=== PATIENT | female | born 1955 | race Caucasian/White ===

== ENCOUNTER 2024-01-07 17:12 | Inpatient (IN) | payer BC, SELFPAY ==
[2024-01-07] VITALS (10 sets, daily range): BP systolic 98–151; BP diastolic 72–94; BMI 22.5; BMI 21.9
[2024-01-07 10:40] LABS: Glucose - Point of Care 107 mg/dl (70-99)
--- NOTE | 2024-01-07 10:47 | ED.GENMED ---
History of Present Illness
General
Chief Complaint: Abdominal Symptoms
Source: patient
Time Seen by Provider: 01/07/24 10:19
History of Present Illness
History of Present Illness:
68yoF with no known medical problems (has not seen a PCP in many years) presenting for evaluation of abdominal bloating and distention. Patient states she is a very thin lady but she started to look like she was about 6-7 months ago. She
also reports associated bilateral leg swelling which has also been ongoing. Additionally, she is urinating very frequently without any associated dysuria. She denies any shortness of breath or orthopnea. She has not seen a doctor in many years but
she did see an OBGYN last week who ordered an outpatient abdominal ultrasound which is not scheduled until next month. She denies any tobacco use. She drinks on average 3 glasses of wine/week.
Phy Exam
General Physical Exam
General Presentation: well appearing and no apparent distress
General age: appears stated age
General Skin: warm and dry
General Habitus: normal
General Mental: alert
ENT Exam
ENT Exam: normocephalic
Cardiovascular Exam
Cardiovascular Exam: regular rate/rhythm, no murmur and other (2+ pitting edema in bilateral lower extremities)
Pulmonary Exam
Pulmonary Exam: lungs clear, no respiratory distress, no rales, no crackles, no rhonchi and no wheezing
Gastrointestinal Exam
Gastrointestinal Exam: non tender, soft and other (+Abdominal distention noted. Abdomen non-tender to palpation. )
Xavi Coma Scale
Eye Opening: Spontaneous
Verbal Response: Oriented
Motor Response: Obeys Commands
GCS Total Score: 15
Skin Exam
Skin Exam: normal color and warm/dry
Psychiatric Exam
Psychiatric Exam: normal mood/affect
Course
Orders/Labs/Results
Orders:
Orders
01/07/24 Breakfast
Regular
At Your Request: Full Participation
Does patient need a safe tray?: No
01/07/24 10:20
Bedside Glucose- Treatment ONCE
01/07/24 10:46
CR Chest - 2 Views Urgent
Comment:
Reason For Exam: Leg swelling
Venous Doppler Lwr Ext Bilat [US Periph Venous LOWER Ext Carter] Urgent
Comment:
Reason For Exam: Bilateral leg swelling
01/07/24 10:57
Complete Blood Count/With Diff Urgent
Comprehensive Metabolic Panel Urgent
Lipase Urgent
NT-proBNP Urgent
01/07/24 10:58
Urinalysis Reflex To Culture Urgent
Date Specimen was Collected: 01/07/24
Time Specimen was Collected: 10:57
01/07/24 11:06
CT Abd/pelvis W Iv Cont Urgent
Comment:
Reason For Exam: Abdominal distention
01/07/24 16:52
Admit/Transfer Patient As Directed
Co-Sign Provider:
Level of Care: Inpatient admission
Assign to:: Medical/Surgical
Physician / Group: Tone
Diagnosis: Abdominal Mass
Reason for Hospitalization: Abdominal Mass
Expected length of stay greater than two midnights?: Yes
ELOS- Estimated Length of Stay in days: 3
I certify the patient meets the requirements for IP care: Yes
PRN Pain Medication Management As Directed
May give lesser potent ordered pain med per pt: Yes
preference::
Protocol:: Medication orders for pain may be administered in a
manner that supports deferring to patient preference
when the pt is:
- Requesting an ordered lesser potent pain medication.
Least to most potent pain medications are defined
as: acetaminophen < NSAID < tramadol < opioids
(morphine, oxycodone, hydromorphone).
- Requesting a lesser dose of the same medication IF
ORDERED.
- Requesting a less intrusive route of administration
if both routes are prescribed by the provider (PO <
IV).
01/07/24 16:53
Code Status As Directed
Resuscitation Status: Full Code
01/07/24 17:35
HCG Male/Tumor Marker [S] Routine
01/07/24 17:45
Acetaminophen [Tylenol] 650 mg PO Q4HPRN PRN
Ondansetron Injectable [Zofran] 4 mg IV Q6HPRN PRN
01/07/24 17:45
Consult Surgery [SURGICAL CONSULT] Routine
Consulting Provider: Lorenzo Wagner
Was physician already notified: Yes
Reason for consult: Abd / Pelvic Mass
FACILITY SUPERVISOR Oncology Consult Routine
Consulting Provider: Terry Hickman
Was physician already notified: Yes
Reason for consult: Abd / Pelvic Mass
CA 125 Routine
LDH Routine
MR Abdomen W/o & W Contrast Routine
Comment: Abd and Pelvis
Reason For Exam: L retroperitoneal mass
Recent pill cam endoscopy?: No
Activity As Directed
Activity Level: Ambulate
Bladder Scan As Directed
Follow Bladder Retention/Intermittent Cath Algorithm?: Yes
PRN if no void in __ hours: 6
Frequency: Per Retention Algorithm
If Bladder Scan Result >: 400
then:: Straight cath
I/O [Intake/ Output] As Directed
Frequency: Per unit guidelines
Pneumatic Compression Sleeves As Directed
Type: Knee high
Straight Cath As Directed
Frequency: Per Retention Algorithm
Additional Instructions: straight cath as needed per acute urinary retention algorithm for 24 hrs
Additional Instructions: for bladder scan greater than 400 mL
Vital Signs As Directed
Frequency: Per unit guidelines
Weight As Directed
Frequency: Daily
Oxygen Therapy [O2 Therapy] [RESP] Routine
Titrate/Wean O2 to maintain O2 sat greater than (%): 94
DX Deep Vein Thrombosis Video Routine
01/08/24 06:00
Basic Metabolic Panel IN AM
Complete Blood Count/No Diff IN AM
LFT [Sugkc-Aohx-Lbzdazq] IN AM
Abnormal Lab Results
01/07/24 01/07/24 01/07/24
10:39 10:57 11:02
MPV 11.0 H fL
(7.4-10.4)
BUN 22 H mg/dl
(7-17)
Glucose 102 H mg/dl
(70-99)
POC Glucose 107 H mg/dl 105 H mg/dl
(70-99) (70-99)
01/07/24 10:57
01/07/24 10:57
Vital Signs
Initial and Last Documented VS:
Initial Vital Signs
Temp Pulse Resp BP
98.3 F 75 16 151/87
01/07/24 09:35 01/07/24 09:35 01/07/24 09:35 01/07/24 09:35
Last Documented Vital Signs
Temp Pulse Resp BP Pulse Ox
98.7 F 65 18 141/84 99
01/07/24 18:05 01/07/24 18:05 01/07/24 18:05 01/07/24 18:05 01/07/24 18:05
MDM/Problems Addressed
Differential Diagnosis Includes:
68yoF here with abdominal distention x 6-7 months with associated urinary frequency and bilateral leg swelling. Patient has not seen a PCP in many years. She is afebrile and hemodynamically stable. She is well-appearing in no acute distress.
Abdomen is significantly distended although nontender. There is also pitting edema to the lower extremities. Differential diagnosis includes but is not limited to: Malignancy, volume overload, CHF
Initial ED plan: Check abdominal labs, UA, bilateral venous duplex, CXR, and CT abdomen.
*Critical Care Note
Total Time (30-74mins, 75-104mins- exclusive of procedures): Not Applicable
Update Note
Update Note:
Labs unremarkable. UA bland without signs of infection. Venous duplex negative for DVT. No pulmonary edema on chest x-ray. CT abdomen unfortunately shows a large mass within the pelvis extending into the abdomen measuring 27cm x 23cm with
significant mass effect. Patient informed of results and I reviewed CT images with her. Case discussed with relief man/onc and she was admitted for further management.
ED Attending Note
-
Portions of this chart may have been created with voice recognition software.� Occasional wrong word or��sound alike� substitutions may have occurred due to the inherent limitations of voice recognition software.
Discharge Plan
Departure
Patient Disposition: Admit
Date of Disposition: 01/07/24
Time of Disposition: 15:19
Presentation/result/management discussed w/ accepting MD/DO: Hospitalist
Discharge Problem:
Mass of ovary
Interventions
Interventions:
*Risk Screen - Suicide Last Done: 01/07/24 09:35
*General Assessment Last Done: 01/07/24 09:35
*Neglect/Abuse Screening Last Done: 01/07/24 09:35
ED- Fall Risk Assessment Last Done: 01/07/24 11:03
*ED COVID-19 Vaccine History Last Done: 01/07/24 11:03
*Nursing Disposition Last Done: 01/07/24 17:45
QK-Yfrtvf-Vnmmotqspw Assessment Last Done: 01/07/24 11:03
Discharge Date and Time
Discharge Date/Time: 01/07/24 17:45
[2024-01-07 11:03] LABS: Glucose - Point of Care 105 mg/dl (70-99)
[2024-01-07 11:20] LABS: % Basophils 1.3 % (0-2); % Eosinophils 2.3 % (0-6); % Immature Granulocytes 0.2 % (0-0.5); % Lymphocytes 26.9 % (20.5-51.1); % Monocytes 6.7 % (1.7-9.3); % Neutrophils 62.6 % (42.2-75.2); Absolute Basophils 0.1 10^3/uL (0-0.2); Absolute Eosinophils 0.1 10^3/uL (0-0.7); Absolute Lymphocytes 1.6 10^3/uL (1.2-3.4); Absolute Monocytes 0.4 10^3/uL (0.1-0.6); Absolute Neutrophils 3.8 10^3/uL (1.4-6.5); Hematocrit 39.8 % (37.0-47.0); Hemoglobin 13.3 g/dL (12.0-16.0); Mean Corp Hgb Conc. 33.4 g/dL (33.0-37.0); Mean Corpuscular Hgb 30.2 pg (27.0-31.0); Mean Corpuscular Volume 90.5 fL (81.0-99.0); Nucleated Red Blood Cells % 0 %; Platelet Count 249 10^3/uL (130-400); Red Cell Dist. Width 14.4 % (11.5-14.5); White Blood Cell Count 6.1 10^3/uL (4.8-10.8)
[2024-01-07 11:31] LABS: ALT (SGPT) 22 U/L (0-35); AST (SGOT) 32 U/L (14-36); Albumin 4.6 g/dl (3.5-5.0); Alkaline Phosphatase 54 U/L (38-126); Blood Urea Nitrogen 22 mg/dl (7-17); Calcium 9.9 mg/dl (8.4-10.2); Carbon Dioxide 27 mmol/L (22-30); Chloride 104 mmol/L (98-107); Estimated Creatinine Clearance 52 ml/min; Glucose 102 mg/dl (70-99); Lipase 100 U/L (23-300); Potassium 4.4 mmol/L (3.5-5.1); Sodium 143 mmol/L (135-145); Total Bilirubin 0.4 mg/dl (0.2-1.3); Total Protein 7.1 g/dl (6.3-8.2); eGFR > 60.00
[2024-01-07 11:39] LABS: NT-proBNP 133 pg/ml
[2024-01-07 11:41] LABS: Urine Albumin Negative (Neg - Trace); Urine Bilirubin Negative (Negative); Urine Character Clear (Clear); Urine Color Yellow; Urine Glucose Negative (Negative); Urine Ketone Negative (Negative); Urine Leukocyte Negative (Negative); Urine Nitrite Negative (Negative); Urine Occult Blood Negative (Negative); Urine Urobilinogen Negative (Neg - 1+)
--- NOTE | 2024-01-07 16:37 | HPS.HSE ---
Family Physician
-
Family Physician: NOT KNOW UNKNOWN - PT DOES
Chief Complaint
-
Abdominal Distention
History of Present Illness
Patient is a 68y F with no significant PMH who presents to ED complaining of abdominal distention and ankle edema. Patient states that she initially noted a bloating sensation / increased abdominal girth in May / June of this year. This
has gradually increased since that time. Patient states that she is very active. She denies any associated symptoms including abdominal pain, N/V/D, fevers / chills, vaginal discharge or bleeding.
Patient also noted some ankle swelling since this past summer. This too has increased over time. She reports urinary frequency but no urgency / bleeding.
With progressive constellation of symptoms, patient presented to her ASSISTANT [employer]CH OPERATIONS MANAGER for evaluation this past week. Outpatient evaluation was ordered including abdominal imaging.
Patient states that her symptoms have significantly increased in the past week and she presented to the ED here for evaluation.
Medical History
Past Medical History
Past Medical History: Reports None
Past Surgical History: Reports Other
Additional Past Surgical History:
D&E x 2
Right Lumpectomy (benign)
Social History
Tobacco: Non-smoker
Alcohol: Occasional
Drug: None
Family History
Family History: Other (Father: Lung Cancer Mother: Longevity)
Allergies / Home Medications
Allergies reflects when Allergies were last updated in [employer].
Home Medications with original date entered in [facility]
Allergy/Medication List:
Allergies
Allergy/AdvReac Type Severity Reaction Status Date / Time
acetaminophen Allergy Intermediate Unknown Verified 01/07/24 09:34
[From Darvocet-N 100]
propoxyphene Allergy Intermediate Unknown Verified 01/07/24 09:34
[From Darvocet-N 100]
Sulfa (Sulfonamide Allergy Unknown Verified 01/07/24 09:34
Antibiotics)
Home Medications
acetaminophen 500 mg tablet (Tylenol Extra Strength) 1,000 mg PO Q6HPRN PRN mild pain 01/07/24
clindamycin phosphate 1 % topical gel 1 applic topical BIDPRN PRN skin issues 01/07/24
multivitamin with minerals (Hair,Skin and Nails tablet) 1 tab PO DAILY 01/07/24
naproxen sodium 220 mg tablet (Aleve) 220 mg PO BIDPRN PRN mild pain 01/07/24
phenylephrine 0.25 %-mineral oil 14 %-petrolatm 74.9 % rectal ointment (Preparation H) 1 applic MT AMHS PRN hemorrhoids 01/07/24
pyridoxine (vitamin B6) 100 mg tablet 100 mg PO DAILY 01/07/24
Review of Systems
-
History Source: Patient
A 12 point ROS was completed and negative except as noted: Yes
Constitutional: Denies Chills
EENT: Denies Sore Throat
Respiratory: Denies Cough or Trouble Breathing
Cardiac: Denies Chest Pain or Palpitations
Abdomen/GI: Reports Other (Abdominal distention); Denies Abdominal Pain, Nausea, Vomiting or Diarrhea
: Reports Frequency; Denies Dysuria or Flank Pain
Musculoskeletal: Reports Edema; Denies Joint Pain
Neurological: Denies Dizzy, Headache, Weakness or Numbness
Psych: Denies Depression or Anxiety
Physical Exam
Vital Signs
Vital Signs
Temp Pulse Resp BP Pulse Ox
98.3 F 71 16 125/77 97
01/07/24 09:35 01/07/24 11:03 01/07/24 09:35 01/07/24 14:00 01/07/24 14:30
Physical Exam
General: Other (68y F in no acute distress.)
HEENT: Moist mucous membranes and PERRLA
Respiratory: Clear; No Wheezes, Rales or Rhonchi
Cardiac: S1/S2 and Regular Rhythm; No Murmur
GI: Other (Abdomen is softly distended. Not tender. Pos BS. No rebound / guarding.)
Musculoskeletal: No Clubbing, No Cyanosis and Other (Trace pedal edema bilaterally.)
Neuro: AO x 3
Laboratory Results
-
01/07/24 10:57
01/07/24 10:57
Laboratory Results
Total Bilirubin 0.4 mg/dl (0.2-1.3) 01/07/24 10:57
AST 32 U/L (14-36) 01/07/24 10:57
ALT 22 U/L (0-35) 01/07/24 10:57
Alkaline Phosphatase 54 U/L (38-126) 01/07/24 10:57
Lipase 100 U/L (23-300) 01/07/24 10:57
Impression/Plan
-
A/P: Patient is a 68y F with no significant PMH who presents to ED complaining of abdominal distention and LE edema x weeks / months.
Left Abdominal / Pelvic Mass
- Admit for further evaluation and treatment.
- Large mass in the L abdomen / pelvis with a degree of mass effect on the L ureter, IVC, etc.
- Normal renal function, labs all unremarkable.
- Patient essentially asymptomatic with exception of abdominal distention (no pain) and ankle swelling.
- ASSISTANT [employer] OPERATIONS MANAGER-Onc consulted - mass on second look appears more c/w retroperitoneal origin than pelvic / ovarian origin.
- Surgery evaluation.
- Check MRI for further evaluation.
- Tumor markers, additional labs, etc.
- Follow for any new / worsening symptoms.
DVT Prophylaxis: SCDs
Code Status: Full
--- NOTE | 2024-01-07 17:14 | W.CON.GYNONC ---
Consultation
-
Date/Time Consultation Requested: 01/07/2024
Requesting Provider: louann Torres PA-C
Performing Provider: Terry Hickman
Chief Complaint
-
AbdominoPelvic Mass
History of Present Illness
68y WF menopausal for at least 10 years with no significant PMH who presents to ED complaining of abdominal distention and ankle edema. Patient states that she initially noted a bloating sensation / increased abdominal girth in May
/ June of this year. This has gradually increased since that time. her symptoms have significantly increased in the past week and she presented to the ED here for evaluation. she has not gained weight, occasionally has irrgeular bowels but that
is usual for her. Patient states that she is very active, practices yoga, is a cyclist She denies any associated symptoms including abdominal pain, N/V/D, fevers / chills, vaginal discharge or bleeding.
Patient also noted some intermittent ankle swelling since this past summer. She reports urinary frequency but no urgency / bleeding. she does not have PCP, could not find a primary care to see her. she was seen previously by Dr Shu David in
[facility] last vocational education teacher exam 2-3 yeasr ago, she did seek and see vocational education teacher this apst week with Dr Madden. she did not do a pap but ordered US of pelvis.
POB Hx: 2 , 2 D&E
PMH None
PSH: Mohs surgery (skin ca), D&E x 2, breast biopsy (benign)
FHx: father lung ca (smoker)
Meds: Vitamin B6, D
All: Darvocet, ? sulfa
SHX: denies tobacco use, drinks wine 3 times per week, denies drugs and marijuana
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
Mammogram 2 years ago
Medical History
Past Medical History
Past Medical History: Reports None
Past Surgical History: Reports Gynocological
Social History
Tobacco: Non-smoker
Alcohol: Occasional
Drug: None
Personal:
Living: Alone
Employment: Employed
Family History
Family History: Cancer (father Lung ca)
Allergies
Allergies reflect when allergies were last updated in [employer].
acetaminophen [From Darvocet-N 100] Allergy (Intermediate, Verified 01/07/24 09:34)
Unknown
propoxyphene [From Darvocet-N 100] Allergy (Intermediate, Verified 01/07/24 09:34)
Unknown
Sulfa (Sulfonamide Antibiotics) Allergy (Verified 01/07/24 09:34)
Unknown
Review of Systems
-
History Source: Patient
A 12 point Review of Systems was completed except as noted: Yes
EENT: Reports No Symptoms
Respiratory: Reports No Symptoms
Cardiac: Reports No Symptoms
Abdomen/GI: Reports See HPI
: Reports Frequency
Musculoskeletal: Reports See HPI (leg swelling)
Neurological: Reports No Symptoms
Endocrine: Reports No Symptoms
Hematologic/Lymphatic: Reports No Symptoms
Psych: Reports No Symptoms
Physical Exam
Vital Signs / I&O
Vitals
Temp Pulse Resp BP Pulse Ox
98.3 F 71 16 118/86 97
01/07/24 09:35 01/07/24 11:03 01/07/24 09:35 01/07/24 16:25 01/07/24 16:45
Physical Exam
General: Well Developed and No Apparent Distress
HEENT: Normocephalic
Respiratory: Clear and Non Labored Respirations
Cardiac: S1/S2 and Regular Rhythm
GI: Organomegaly
Genito-urinary: No Costovertebral Tend
Musculoskeletal: Edema
Skin: Warm
Neuro: Awake, Alert and Oriented
Hematologic/Lymphatic: No Lymphadenopathy
Psych: Anxious
Results
-
01/07/24 10:57
01/07/24 10:57
REPORT ADDENDUM~~
ADDENDUM
With superior displacement of the left kidney, this mass is more likely retroperitoneal rather than intraperitoneal. 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
Electronically signed by Guerrero Ocampo MD, 01/07/2024 4:49 PM
[employer] Dose Report: Up-to-date CT equipment and radiation dose reduction techniques were employed. CTDIvol: 6.9 mGy. DLP: 758 mGy-cm.
Addendum Dictated by: Guerrero Ocampo MD
Addendum Dictated Date & Time: 01/07/24 1642
Addendum Signed by: Terrence CALZADA,Guerrero Garza
Addendum Signed Date & Time: 01/07/24 1649
EXAMINATION: CT of the abdomen and pelvis with intravenous contrast
INDICATION: 68-year-old with abdominal distention. Bloating for the past couple of months. Bilateral leg swelling.
COMPARISON: No comparison examination is available.
FINDINGS: CT of the abdomen and pelvis with intravenous contrast and without oral contrast, per the emergency department CT protocol.
Mild dependent atelectasis in the posterior lower lungs. There is also a linear density within the anterior and inferior aspect of the left lower lobe, which is likely linear atelectasis although could also represent scarring.
There is no significant pleural effusion and no significant pericardial effusion.
There is a large mass filling much of the pelvis and extending into the abdomen to the T12 level. This mass has slightly greater extension into the left pelvis and abdomen when compared to the right. Also, results in deviation of the left ureter
into the right abdomen and pelvis, before crossing back to the left ureteral orifice within the pelvis. There is also mild to moderate left calyceal dilation from compression of the left ureter.
This mass has heterogeneous density including a significant fat component. 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 This mass measures 27.4 cm craniocaudal by 23.3 cm transverse by
approximately 12 cm AP.
The uterus is probably retroflexed extending in the presacral region. Also, heterogeneous enhancement of the posterior uterus, probably best seen on coronal images, suggesting that there is also likely a posterior exophytic fibroid or fibroids.
There is a small amount of free fluid within the posterior pelvis posterior to the uterus.
I believe that the right ovary is present in the right adnexal region and appears within normal limits, although somewhat difficult to confidently identified.
Of note, by imaging alone, it would be difficult to exclude torsion of this large left ovarian mass, and clinical correlation is advised.
There is significant mass effect upon bowel loops, as well as upon the pancreas and the left ovary, with significant superior extension of the left ovary.
No focal abnormality of the gallbladder by CT. Mild intrahepatic bile duct prominence. The common bile duct measures up to 8.4 mm, which is considered dilated in this 68-year-old patient, and possibly as a result of extrinsic mass effect upon the
pancreas.
Tiny 2 mm cysts present within the lateral and superior aspect of the right lower liver. No other focal hepatic lesions. The main portal vein and its branches appear patent as well as the SMV and the splenic vein. Hepatic veins are patent.
The spleen appears normal.
Both adrenal glands appear within normal limits.
There is no aortic aneurysm. No significantly enlarged abdominal or pelvic lymph nodes are identified.
Despite compression of bowel loops, there is no convincing evidence for bowel obstruction.
This mass does contribute to compression of the inferior IVC as well as the common iliac veins, and could certainly be the cause for lower extremity swelling. No gross evidence for venous thrombus on the basis of this CT examination.
There is mild subcutaneous edema within the visualized proximal thighs.
Mild dextroconvex scoliosis centered in the upper lumbar spine. Changes of degenerative disc disease, greatest at L2-3. No significant degenerative change of the hip joints. Mild degenerative changes symphysis pubis.
IMPRESSION: There is a large mass within the pelvis and extending into the abdomen. This has heterogeneous density with significant component of fat density. 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
associated mass effect.
Of note, torsion of this mass cannot be excluded by imaging findings, and clinical correlation is advised.
Small amount of free pelvic fluid in the posterior pelvic cul-de-sac.
See above narrative.
Electronically signed by Guerrero Ocampo MD, 01/07/2024 2:18 PM
Data Reviewed
-
Diagnostic Radiology: Image personally visualized and interpreted and Discussed with Physician (spoke with radiologist Dr Hoang and Hospitalist Dr Wayne )
CT Scan: Image personally visualized and interpreted and Discussed with Physician
Lab Data: Labs Reviewed
Impression / Plan
-
This patient has a very large this is a 68-year-old woman with a large 27 x 23 cm mass presenting to the emergency room for abdominal swelling and lower extremity edema. I have personally reviewed the images and feel that the mass is probably
retroperitoneal as it is causing elevation of left kidney, displacement of the ureter from left to right side as well as mass effect on the pancreas. All of these are retroperitoneal structures, the mass exhibits fat density, altogether this is
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
My recommendations are as follows
1Admit patient to hospitalist service for medical evaluation, for preoperative clearance, needs EKG possibly echocardiogram
2Consults surgical oncology for surgical resection
3Consult urology, their services will be likely necessary for cystoscopy stent placement and assistance in surgery
4MRI of the abdomen and pelvis with and without contrast will be helpful for better delineation of the exact location of tumor and soft tissue interaction with adjacent organs.
5CT thorax with contrast, PE protocol to exclude possibly pulmonary embolism and also see whether there is any metastatic disease.
6I do feel that pelvic ultrasound probably should be done as well and I recommend tumor markers including CA125, CEA, CA 19�9 as well as germ cell markers including LDH, AFP, hCG.
7Patient has some concern about returning back to appointment on Tuesday as well as observation of her upcoming yarsani holiday.
[2024-01-07 22:43] LABS: LDH 200 U/L (120-246)
[2024-01-07 23:09] LABS: TSH Reflex To Free T4 2.57 uIU/ml (0.47-4.68)
[2024-01-08 06:00] VITALS: BMI 21.6
[2024-01-08 07:00] VITALS: BP 143/96
[2024-01-08] MEDS: TYLENOL 650 MG PO ×2 (08:01→17:07)
--- NOTE | 2024-01-08 08:22 | W.PN.UPDATE ---
Update Note
Progress Note Update
Seen and examined. No new complaints. No acute overnight events.
Worsening abd distention [id number] with ankle swelling
ct ap showed large mass 27cm, rp mass with mass effect as rp organs have been displaced
no pain, states she wished she had pain because if she did she would have been in the ER sooner.
ROS negative apart from what is stated above
NAD, resting comfortably in bed
Scleral anicteric
Moist mucous membranes
No JVD
CTA bilateral
Normal S1-S2 no murmurs
Doughy like superficially, but on deep palpation hard, Nontender round distended bowel sounds active
Trace pedal edema
Moves extremities spontaneously
AAOx3
Pelvic mass unclear. Ovarian versus retroperitoneal per INTERNAL CONTROL SPECIALIST oncology
-Surgical oncology consult, will need bx
-Urology consult for potential cystoscopy with stent placement
-MRI with abdomen pelvis without contrast
-CT thorax with contrast
-Tumor markers
- -CEA
- -CA 19-9
- -CA125
- -Tumor marker hCG
- -LDH
- -AFP
Hydroxizine ordered for anxiety.
Will check a EKG
At this time RCRI 0. Rodriguez score 0.0% deejay risk
Acceptable risk for surgery if treating surgeon and anesthesia want to proceed with surgery
[2024-01-08 12:41] LABS: Hematocrit 37.3 % (37.0-47.0); Hemoglobin 12.8 g/dL (12.0-16.0); Mean Corp Hgb Conc. 34.3 g/dL (33.0-37.0); Mean Corpuscular Hgb 30.4 pg (27.0-31.0); Mean Corpuscular Volume 88.6 fL (81.0-99.0); Mean Platelet Volume 10.4 fL (7.4-10.4); Platelet Count 233 10^3/uL (130-400); Red Blood Cell Count 4.21 10^6/uL (4.20-5.40); Red Cell Dist. Width 14.6 % (11.5-14.5); White Blood Cell Count 5.5 10^3/uL (4.8-10.8)
[2024-01-08 13:29] LABS: ALT (SGPT) 20 U/L (0-35); AST (SGOT) 26 U/L (14-36); Albumin 4.3 g/dl (3.5-5.0); Alkaline Phosphatase 42 U/L (38-126); Blood Urea Nitrogen 15 mg/dl (7-17); Calcium 9.7 mg/dl (8.4-10.2); Carbon Dioxide 26 mmol/L (22-30); Chloride 105 mmol/L (98-107); Direct Bilirubin 0.1 mg/dl (0.0-0.4); Estimated Creatinine Clearance 60 ml/min; Glucose 112 mg/dl (70-99); Potassium 4.4 mmol/L (3.5-5.1); Sodium 141 mmol/L (135-145); Total Bilirubin 0.5 mg/dl (0.2-1.3); Total Protein 6.5 g/dl (6.3-8.2); eGFR > 60.00
--- NOTE | 2024-01-08 13:36 | CON.GS ---
Consultation
-
Date/Time Consultation Requested: 01/07/2024, 17:45
Date/Time Consultation Performed: 01/08/2024, 09:45
Requesting Provider: Mikael Wayne DO
Performing Provider: Lorenzo Wagner MD
Reason for Consultation: retroperitoneal mass
Medical History
-
Chief Complaint: leg swelling, abdominal distention
History of Present Illness:
68 yo female with a past medical history of anxiety presents with lower extremity swelling and abdominal distention. The patient states her leg swelling started in September 2023 and would wax and wane. She states her abdominal distention started around
May 2023 and has continued to worsen. She states her bowel movements have been regular for her. She denies rectal bleeding. She notes she had had increased urination. She denies nausea or vomiting. She has never had a colonoscopy. There is no
family history of rectal or colon cancer.
Upon arrival to the ER, her wbc and vitals are normal. CT A/P shows a large abdominal mass extending into the pelvis. The mass is more likely retroperitoneal rather than intraperitoneal. 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 We have been consulted for further surgical opinion.
Past Medical History
Past Medical History: Psychiatric (anxiety)
Past Surgical History: Other (D&E x 2, Right Lumpectomy )
Social History
Tobacco: Non-Smoker
Drug: None
Employment: Employed
Family History
Family History: Reviewed & Not Pertinent
Allergies / Home Medications
Allergy/AdvReac Type Severity Reaction Status Date / Time
acetaminophen Allergy Intermediate Unknown Verified 01/07/24 09:34
[From Darvocet-N 100]
propoxyphene Allergy Intermediate Unknown Verified 01/07/24 09:34
[From Darvocet-N 100]
Sulfa (Sulfonamide Allergy Unknown Verified 01/07/24 09:34
Antibiotics)
�Medication �Instructions �Recorded �Confirmed �Type
acetaminophen 500 mg tablet 1,000 mg PO Q6HPRN PRN mild pain 01/07/24 01/07/24 History
(Tylenol Extra Strength)
clindamycin phosphate 1 % topical 1 applic topical BIDPRN PRN skin 01/07/24 01/07/24 History
gel issues
multivitamin with minerals 1 tab PO DAILY 01/07/24 01/07/24 History
(Hair,Skin and Nails tablet)
naproxen sodium 220 mg tablet 220 mg PO BIDPRN PRN mild pain 01/07/24 01/07/24 History
(Aleve)
phenylephrine 0.25 %-mineral oil 1 applic [place] [facility] PRN hemorrhoids 01/07/24 01/07/24 History
14 %-petrolatm 74.9 % rectal
ointment (Preparation H)
pyridoxine (vitamin B6) 100 mg 100 mg PO DAILY 01/07/24 01/07/24 History
tablet
Review of Systems
-
History Source: Patient
All other systems: Negative unless noted
Constitutional: Weight Gain
Abdomen/GI: Other (distention)
: Other (increased urinary frequency)
Musculoskeletal: Edema (b/l lower extremities)
A 10 point review of systems was completed, and was negative except as per HPI.
Physical Exam
Vital Signs
Temp Pulse Resp BP Pulse Ox
98.2 F 74 16 143/96 98
01/08/24 07:00 01/08/24 07:00 01/08/24 07:00 01/08/24 07:00 01/08/24 07:00
01/07/24 01/08/24 01/09/24
06:59 06:59 06:59
Actual Weight 51.851 kg
Body Mass Index (BMI) 21.6
Lab Results
01/08/24 12:27
01/08/24 12:27
WBC 5.5 10^3/uL (4.8-10.8) 01/08/24 12:27
Hgb 12.8 g/dL (12.0-16.0) 01/08/24 12:27
Hct 37.3 % (37.0-47.0) 01/08/24 12:27
Plt Count 233 10^3/uL (130-400) 01/08/24 12:27
Abs Immat Gran (auto) 0.0 10^3/uL (0-0.05) 01/07/24 10:57
Neutrophils % 62.6 % (42.2-75.2) 01/07/24 10:57
Physical Exam
General: Well Developed and No Apparent Distress
GI: Soft, Non Tender and Distended
Skin: Warm and Dry
Neuro: AO x 3
Data Reviewed
-
CT Scan: Image Personally Visualized and interpreted, Report Reviewed by me and Discussed with Patient
Labs: Labs Reviewed by me, Discussed with Physician and Discussed with Patient
Old Records: Reviewed
Assessment / Plan
-
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
Plan:
-Case discussed with Dr. Israel Fuller. He will see patient in consultation.
-Tumor markers sent
-CT chest noted - no metastatic disease
-Urology consult pending
-Surgery per Dr. Fuller.
--- NOTE | 2024-01-08 13:57 | W.PN.HOSP.TC ---
Today's Communication/Plan
-
abd MRI, surgical oncology evaluation
Assessment / Plan
Assessment / Plan
Impression: 68y F with no significant PMH who presents to ED complaining of abdominal distention and LE edema x weeks / months.
Left Abdominal / Pelvic Mass
Worsening abdominal distention x 7 months without pain, with urinary urgency and bilateral LE edema
Chest CT: no pulmonary embolism. There is no evidence of pulmonary metastasis. There is subsegmental atelectasis at the left lung base
Large mass in the L abdomen / pelvis 27cm/23cm with mass effect on adjacent structures
EKG:
- Tumor markers pending HARRY, CA 19-9, CA125, hCG, AFP pending
- Surgical oncology consult, possible biopsy procedure
- Urology consult for potential cystoscopy with stent placement
- MRI with abdomen pelvis
- Pt is extremely anxious about this situation and is regretful of not going to the ER sooner. Is agreeable to seeing a psychiatrist. Will place psych consult
- Follow for any new / worsening symptoms.
DVT Prophylaxis: SCDs
Code Status: Full
DATA:
Pelvic/transvaginal US: large heterogeneous mass in the abdomen and pelvis, incompletely imaged on this study and corresponding with the mass seen on the CT examination. This mass measures approximately 16 x 29 x 37.5 cm in AP, transverse and
craniocaudal dimensions and is relatively echogenic sonographically which along with the CT findings is suspicious for dermoid tumor
Anticipated Discharge: 24 - 48 hours
Subjective/Interval History
-
Date of Service: January 08, 2024
Objective Data
-
Labs:
Laboratory Results
01/08/24
12:27
WBC 5.5
Hgb 12.8
Hct 37.3
Plt Count 233
Sodium 141
Potassium 4.4
Chloride 105
Carbon Dioxide 26
BUN 15
Creatinine 0.7
Glucose 112 H
Calcium 9.7
Total Bilirubin 0.5
AST 26
ALT 20
Alkaline Phosphatase 42
Vital Signs:
Vital Signs
Temp Pulse Resp BP Pulse Ox
98.2 F 74 16 143/96 98
01/08/24 07:00 01/08/24 07:00 01/08/24 07:00 01/08/24 07:00 01/08/24 07:00
I&O
01/07/24 01/08/24 01/09/24
06:59 06:59 06:59
Intake Total 1080 / 1080
Balance 1080 / 1080
Review of Systems
-
History Source: Patient
Constitutional: Denies Fever
Respiratory: Denies Trouble Breathing
Cardiac: Denies Chest Pain or Palpitations
Abdomen/GI: Reports Constipated; Denies Abdominal Pain, Nausea, Vomiting or Diarrhea
Genitourinary: Reports Frequency
Physical Exam
-
General: Comfortable
HEENT: Normocephalic, Atraumatic and Anicteric
Respiratory: Clear to Auscultation and Non Labored Respirations; Negative Wheezes, Rales, Rhonchi or Crackles
Cardiac: Regular Rhythm and S1/S2; Negative Murmur, Rub or Calf Tenderness
GI: Nontender, Normal Bowel Sounds and Distended; Negative Soft
Genito-urinary: No Costovertebral Tender
Skin: Warm and Dry
Neuro: Awake and Alert
Psych: Anxious (tearful)
--- NOTE | 2024-01-08 14:02 | CM ---
Alert awake oriented patient who lives alone in a 3 story home with 2 steps to enter and 13 steps to bed/bathroom. She is independent in driving working and alll activates of daily living.No adaptive devices.She was offered VN she declined need. Pt
completing Advanced Directive she will give to US to scan in her chart.
Had [facility] in past . No SNF hx
Pharmacy [facility] [place] [facility]
PCP [facility] information [phone]
PLAN Home no needs
--- NOTE | 2024-01-08 14:32 | CON.SURG ---
Surgical Consultation
-
Surgical Oncology Consultation
DATE: 01/08/2024
HISTORY OF PRESENT ILLNESS:
She is a 68-year-old woman who presented to the ED on 01/07/24 with increasing abdominal distention and ankle edema. Subsequently, she underwent a lower extremity ultrasound, showing no evidence of DVT, and a transvaginal pelvic ultrasound, revealing
uterine fibroid and a poorly visualized left ovary. She also had a CT of the chest, abdomen, and pelvis, which demonstrated a massive left retroperitoneal tumor, measuring 27.4 cm x 23.3 cm x 12 cm, displacing the left kidney and the bowel. The
tumor was heterogeneous, including solid components as well as some fat components. She denied abdominal pain, poor appetite, weight loss, changes in bowel habits, fevers, chills, or pruritus.
PAST MEDICAL HISTORY: �unremarkable
FAMILY HISTORY: paternal and maternal aunts with breast cancer
ALLERGIES: Dovocet and sulfa drugs
PHYSICAL EXAMINATION:
She was anicteric. Her head and neck examination revealed no lymphadenopathy or masses. The heart had a regular rhythm and rate and no murmurs. The chest was clear bilaterally. The abdomen was distended with a mass encompassing the entire abdomen.
ASSESSMENT AND PLAN:
I had a long discussion with Mrs. Girard and her son regarding her retroperitoneal tumor.� The differential diagnosis includes a desmoid tumor, GIST, lymphoma, and sarcoma. Malignant tumors are more frequent than benign in the retroperitoneum, and
given her CT scan findings, I favor liposarcoma, which is one of the most common primary retroperitoneal neoplasms. There is a varying amount of fat and soft tissue in these tumors, from purely fat, usually low-grade lesions, to a very heterogeneous
mass with extensive soft tissue components, usually high-grade lesions, as in her case. I explained to them that the treatment for retroperitoneal sarcoma is surgical resection or debulking.� However, if this is lymphoma, this is best treated with
chemotherapy, perhaps followed by local radiotherapy.
In order to better delineate this tumor from the surrounding structures, I recommended an MRI of the retroperitoneum, which is already scheduled. I also recommended an ultrasound or CT-guided biopsy of the tumor to obtain a definitive tissue
diagnosis.� If the biopsy shows findings consistent with sarcoma, I recommend a radiation oncology consultation for potential neoadjuvant radiotherapy, which may make the surgical resection less extensive. Retroperitoneal sarcoma presents
considerable challenges due to its large size and deep location in an anatomic complex area containing many vital structures, making resectability difficult and sometimes impossible. For these reasons, recurrence is common and occurs in 2/3 of the
patients with retroperitoneal sarcoma. Since she has minimal symptoms from the mass, I recommend regrouping as an outpatient when her biopsy results become available.
--- NOTE | 2024-01-08 14:49 | W.PN.GYNONC ---
Today's Communication
-
Proceed with MRI of abdomen and pelvis as ordered
Proceed with cardiology consultation and echocardiogram
Request interventional radiology to perform CT or ultrasound-guided biopsy of the tumor
Impression / Plan
-
This patient has a very large this is a 68-year-old woman with a large 27 x 23 cm mass presenting to the emergency room for abdominal swelling and lower extremity edema.
I have personally reviewed the images and feel that the mass is probably retroperitoneal as it is causing elevation of left kidney, displacement of the ureter from left to right side as well as mass effect on the pancreas.
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
My recommendations are as follows
1. ECG has possibly old infarct present, please obtain cardiology evaluation and get echocardiogram in anticipation of upcoming surgery
2. surgical oncology input is appreciated, proceed with CT-guided biopsy tomorrow by IR. Case to be discussed in our weekly tumor board conference and discussion for preoperative radiation therapy for surgical resection versus immediate surgery
3. Consult urology, their services will be likely necessary for cystoscopy stent placement and assistance in surgery
4. MRI of the abdomen and pelvis with and without contrast will be helpful for better delineation of the exact location of tumor and soft tissue interaction with adjacent organs.
5. CT thorax is completed, there is no evidence of pulmonary embolism and there is no evidence of metastatic disease
6. pelvic ultrasound was reviewed, uterus appears to have several leiomyoma, there is normal endometrial echo. Right tube and ovary can be visualized and are normal. The left ovary most likely is involved with the retroperitoneal mass.
7. Tumor markers ordered are pending
8. Patient will likely follow-up as an outpatient with surgical oncology and myself in her surgery will be planned. I do anticipate uterus cervix bilateral tubes and ovaries will be removed as part of her surgery.
I had a lengthy discussion with the patient and her family regarding extent of surgery, inpatient recuperation as well as anticipated outpatient recovery prior to returning back to work.
Subjective / Interval History
-
Patient was seen in her room, remains anxious about the new diagnosis of retroperitoneal malignancy
and son are present in the room
She has visited with surgical oncology, recommendations from was noted and reinforced
Objective Data
-
Lab Results:
01/08/24 12:27
01/08/24 12:27
Exams: CT Chest Pe Study
Scanning parameters: CT arteriography of the chest with intravenous contrast material was obtained. Automated exposure control was used.Images were reviewed using source images as well as multiplanar reformations and 3D reconstructions of the
axially acquired images.
INDICATION: Metastatic workup for abdominal neoplasm
Comparison examination: 01/07/2024
FINDINGS:
There is 2.5 cm hiatal hernia
There is no pulmonary embolism.
There is no aortic dissection.
There is no pneumothorax.
There are no abnormal pleural or parenchymal masses.
There is no evidence of pulmonary metastasis
There is no pleural effusion.
There is subsegmental atelectasis at the left lung base
The lungs are otherwise clear
There is no significant parenchymal airspace disease.
The mediastinum is normal.
There is no hilar or mediastinal lymphadenopathy.
There is no axillary lymphadenopathy.
Imaging of the upper abdomen demonstrates partial volume imaging of the upper margin of the abdominal mass/presumed dermoid tumor seen on the 01/07/2024 examination
No significant osseous abnormalities are demonstrated.
There are no blastic or lytic bone lesions.
IMPRESSION:
There is no pulmonary embolism
There is no evidence of pulmonary metastasis
There is subsegmental atelectasis at the left lung base
Electronically signed by Mckay Mar MD, 01/08/2024 8:58 AM

Order #:[id number]
Exams: US Pelvis W Transvag Combined
Indication: Pelvic mass
COMPARISON: 01/07/2024 CT abdomen pelvis
Scanning parameters:
Real-time/grayscale transabdominal and endovaginal ultrasound of the pelvis was obtained.
Endovaginal ultrasound was performed to better evaluate the ovaries.
FINDINGS:
There is a large heterogeneous mass in the abdomen and pelvis, incompletely imaged on this study and corresponding with the mass seen on the CT examination. This mass measures approximately 16 x 29 x 37.5 cm in AP, transverse and craniocaudal
dimensions and is relatively echogenic sonographically which along with the CT findings is suspicious for dermoid tumor
There are uterine fibroids including:
-3 cm exophytic fibroid at uterine fundus
-1.5 cm mural fibroid in the posterior body of the uterus
-1.5 cm fibroid in the posterior lower uterine segment
The uterus is normal in size measuring 6.6 x 3.2 x 5.8 cm
The uterus is anteverted.
There is no significant thickening of the endometrial cavity echo complex which measures 2 mm.
The right ovary measures 1.6 x 0.9 x 1.4 cm.
The left ovary is not well-visualized
There is no free fluid in the pelvis.
IMPRESSION:
1).There is a large heterogeneous mass in the abdomen and pelvis, incompletely imaged on this study and corresponding with the mass seen on the CT examination. This mass measures approximately 16 x 29 x 37.5 cm in AP, transverse and craniocaudal
dimensions and is relatively echogenic sonographically which along with the CT findings is suspicious for dermoid tumor
2). Fibroid uterus
Electronically signed by Mckay Mar MD, 01/08/2024 9:16 AM
Dictated By: Elva Mar MD
Dictated Date & Time: 01/08/24907
Physical Exam
Vital Signs / I&O
Vitals
Temp Pulse Resp BP Pulse Ox
98.2 F 74 16 143/96 98
01/08/24 07:00 01/08/24 07:00 01/08/24 07:00 01/08/24 07:00 01/08/24 07:00
I&O
01/06/24 01/07/24 01/08/24 01/09/24
06:59 06:59 06:59 06:59
Intake Total 1080 / 1080
Balance 1080 / 1080
Physical Exam
HEENT: Normocephalic
Respiratory: Clear and Non Labored Respirations
Cardiac: S1/S2 and Regular Rhythm
GI: Soft, Non Tender and Distended
Skin: Warm and Dry
Neuro: Awake, Alert and Oriented
Psych: Intact Judgement and Anxious
Data Reviewed
-
Diagnostic Radiology: Image personally visualized and interpreted
CT Scan: Image personally visualized and interpreted
Ultrasound: Image personally visualized and interpreted
Lab Data: Labs Reviewed
[2024-01-08 15:00] VITALS: BP 128/86
[2024-01-08 17:11] LABS: INR 1.05; PT 13.5 Sec (11.4-14.6)
[2024-01-08 17:12] LABS: APTT 33.4 Sec (23.4-35.0)
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
[2024-01-08 23:00] VITALS: BP 123/73
[2024-01-08 23:53] VITALS: BP 123/73
[2024-01-09] VITALS (8 sets, daily range): BP systolic 59–139; BP diastolic 69–87; BMI 21.6
[2024-01-09] MEDS: TYLENOL 650 MG PO (07:55)
[2024-01-09 08:10] LABS: Hematocrit 39.3 % (37.0-47.0); Mean Corp Hgb Conc. 33.1 g/dL (33.0-37.0); Mean Corpuscular Hgb 30.1 pg (27.0-31.0); Mean Platelet Volume 10.2 fL (7.4-10.4); Platelet Count 234 10^3/uL (130-400); Red Blood Cell Count 4.32 10^6/uL (4.20-5.40); Red Cell Dist. Width 14.5 % (11.5-14.5); White Blood Cell Count 6.8 10^3/uL (4.8-10.8)
--- NOTE | 2024-01-09 08:31 | CON.CAR ---
Addendum entered and electronically signed by Lauren Cole MD 01/09/24 11:33:
I saw and examined the patient.
The Management Developer's note was reviewed and I agree with the note.
Comment: I reviewed with physician fish hatchery assistant. I discussed with patient abnormal EKG. She has not had a prior EKG according to patient. Unclear etiology of abnormal EKG with T wave inversions. No change on serial inpatient EKGs. She exercises at
a high level and has no cardiac symptoms. In particular she denies chest pain, shortness of breath and palpitations
-Exam is without change. Regular rate and rhythm, abdominal distention and decreased breath sounds at the bases.
-Echocardiogram with normal LV function and global longitudinal strain. No significant valve disease. Discussed with patient.
We will continue to follow while inpatient.
I did discuss cardio oncology program with patient in addition and have reached out to nurse navigator for outpatient follow-up. On discharge we will see her back in 3 months or sooner if needed pending treatment plan.
She is stable from a cardiovascular point of view to proceed with upcoming biopsy and procedures for tissue diagnosis. If surgery needed she is also stable to proceed without further testing given she is able to obtain greater than 4 METS of
activity without difficulty. Telemetry will be started.
Original Note:
Consultation
Consultation Request
Date/Time Consultation Requested: 01/08/24 at 1500
Date/Time Consultation Performed: 01/09/24 at 0730
Requesting Provider: Dr. Lauren Cole
Performing Provider: Dr. Costa
Reason for Consultation: Abnormal ECG
Medical History
-
History of Present Illness:
Patient came to [facility] on Tuesday with increased abdominal girth and was admitted with new pelvic mass and cardiology is now consulted for an abnormal ECG. Patient noticed bloating starting around June that seemed to suddenly get worse in the last
few weeks. Patient does not see a PCP often, but is generally well and exercise 4 times a week without difficulty. 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 No known h/o CAD in her family. No previous cardiac testing.
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 Patient is also awaiting MRI. No evidence of metastatic disease on CT
chest. Cardiology consulted for abnormal ECG with lateral T wave inversions. Patient denies chest pain. She is a cyclist and reports completing 40-50 miles a ride on weekends and also exercises in a gym with cardio and weights 3 days a week. No
recent decrease in exercise tolerance. No chest pain or ERNANDEZ with activity.
PMH:
None
Past Medical History
Past Medical History: Other (in HPI)
Past Surgical History: Gynecological (D&E, right lumpectomy)
Social History
Tobacco: Non-Smoker
Alcohol: Occasional
Drug: None
Personal:
Living: With Family (her son is living with her)
Employment: Employed (works as a drug and ETOH counselor)
Family History
Family History: Cancer
Allergies / Home Medications
Allergy/AdvReac Type Severity Reaction Status Date / Time
acetaminophen Allergy Intermediate Unknown Verified 01/07/24 09:34
[From Darvocet-N 100]
propoxyphene Allergy Intermediate Unknown Verified 01/07/24 09:34
[From Darvocet-N 100]
Sulfa (Sulfonamide Allergy Unknown Verified 01/07/24 09:34
Antibiotics)
�Medication �Instructions �Recorded �Confirmed �Type
acetaminophen 500 mg tablet 1,000 mg PO Q6HPRN PRN mild pain 01/07/24 01/07/24 History
(Tylenol Extra Strength)
clindamycin phosphate 1 % topical 1 applic topical BIDPRN PRN skin 01/07/24 01/07/24 History
gel issues
multivitamin with minerals 1 tab PO DAILY Supplement 01/07/24 01/07/24 History
(Hair,Skin and Nails tablet)
naproxen sodium 220 mg tablet 220 mg PO BIDPRN PRN mild pain 01/07/24 01/07/24 History
(Aleve)
phenylephrine 0.25 %-mineral oil 1 applic [place] [facility]HS PRN hemorrhoids 01/07/24 01/07/24 History
14 %-petrolatm 74.9 % rectal
ointment (Preparation H)
pyridoxine (vitamin B6) 100 mg 100 mg PO DAILY Supplement 01/07/24 01/07/24 History
tablet
Review of Systems
-
History Source: Patient
All other systems: Negative unless noted
Physical Exam
Vital Signs
Temp Pulse Resp BP Pulse Ox
98.3 F 57 12 123/73 94
01/08/24 23:00 01/08/24 23:00 01/08/24 23:00 01/08/24 23:00 01/08/24 23:00
GEN: NAD. AAOx3
HEENT: EOMI, MMM, wearing glasses
LUNGS: CTA B/L, no wheezes or rales
CV: Reg, S1/S2, 1/6 syst LSB
ABD: Distended, NT
EXT: Trace B/L LE edema. No clubbing, cyanosis or lesions B/L
NEURO: Gross non-focal
SKIN: Warm, dry and pink. No rash
Lab Results
01/09/24 07:56
Jti-X-Hiephoixaiu Pept 133 pg/ml 01/07/24 10:57
Impression / Plan
-
PCP: Unknown
Cardiology: None prior to admission
Impression:
Admitted with new pelvic mass 01/07/24
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
Abnormal ECG
Hyperglycemia
Echo 01/09/24: Study pending
Plan:
-Patient came to [facility] on Tuesday with increased abdominal girth and was admitted with new pelvic mass and cardiology is now consulted for an abnormal ECG. Patient noticed bloating starting around June that seemed to suddenly get worse in the last
few weeks. Patient does not see a PCP often, but is generally well and exercise 4 times a week without difficulty. 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 No known h/o CAD in her family. No previous cardiac testing.
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 Patient is also awaiting MRI. No evidence of metastatic disease on CT
chest. Cardiology consulted for abnormal ECG with lateral T wave inversions. Patient denies chest pain. She is a cyclist and reports completing 40-50 miles a ride on weekends and also exercises in a gym with cardio and weights 3 days a week. No
recent decrease in exercise tolerance. No chest pain or ERNANDEZ with activity.
-ECG on admission reviewed by me is SR with lateral T wave inversions.
-Add to tele monitoring, ordered by me
-Recheck ECG
-Check echo
-BP well controlled without medications throughout visit thus far
-Hyperglycemia noted on labs, check HgbA1c
-LDL 158. 10 year risk score is 6.2%. Could consider adding moderate dose statin.
-No exertional symptoms and no resting chest pain or SOB. Pending echo would recommend patient proceed with planned biopsy and then surgery.
[2024-01-09 08:48] LABS: Blood Urea Nitrogen 15 mg/dl (7-17); Calcium 9.9 mg/dl (8.4-10.2); Carbon Dioxide 26 mmol/L (22-30); Chloride 105 mmol/L (98-107); Estimated Creatinine Clearance 60 ml/min; Glucose 111 mg/dl (70-99); HDL Cholesterol 56 mg/dl; LDL Cholesterol, Calculated 158 mg/dl; Potassium 4.3 mmol/L (3.5-5.1); Sodium 140 mmol/L (135-145); Total Cholesterol 236 mg/dl (50-199); Triglyceride 113 mg/dl (10-149); Very Low Density Lipoprotein 22 mg/dl (0-30); eGFR > 60.00
--- NOTE | 2024-01-09 10:19 | CM ---
Pt seen at bedside. No new changes.
Plan: Home with no needs
--- NOTE | 2024-01-09 11:17 | CM ---
Patient seen at bedside. Patient to follow up with residency clinic, information provided. Patient anxious about discharge as tomorrow is a holy day for her and she is really anticipating singing in the choir. CM will update physician. Patient
concerned about transportation home. Patient care is in the parking lot and she is unsure how to get the car home if she does not drive it home. CM will continue to follow for discharge planning needs.
Plan; home with son; follow up with outpatient physicians.
--- NOTE | 2024-01-09 11:36 | W.PN.HOSP.TC ---
Addendum entered and electronically signed by Pablo Costa MD 01/09/24 23:22:
Attending Addendum-
I saw and evaluated the patient. I reviewed the resident�s note and agree with findings and plan as documented in the resident�s note. Sub: seen post bx, 'it hurts doc' appears anxious. No other complaints. Full 12 point ROS reviewed and negative
except as documented Exam: Vitals reviewed in chart GEN-mild distress due to anxiety, heart RRR liungs clear abd distended tender @ bx site, LE no edema
Plan
# Large Pelvic Mass-
-likely malignant
- CT A/P-01/06 mass with heterogeneous density including a significant fat component. 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 This mass measures 27.4 cm craniocaudal by 23.3 cm transverse by approximately 12 cm AP.
- RP liposarcoma possib;y
- Irad bx- 01/08- pending
- MRI abdomen ordered
- c/s uro for eval
- low cardiac risk medically optimized for surgery
# Anxiety
- ativan prn
- psych on board
DVTp- will start lovenox when able - hish risk
Time spent coordinating care, review of plan of care with resident, personally reviewed records in EMR, med rec, consults, notes, labs, radiology, d/w nursing � 55 mins
Original Note:
Today's Communication/Plan
-
Abd MRI, CT guided biopsy
Assessment / Plan
Assessment / Plan
Impression: 68y F with no significant PMH who presents with large abdominal mass.
Left Abdominal / Pelvic Mass:
Worsening abdominal distention x 7 months without pain, with urinary urgency and bilateral LE edema
Chest CT: no pulmonary embolism. There is no evidence of pulmonary metastasis. There is subsegmental atelectasis at the left lung base
Large mass in the L abdomen / pelvis 27cm/23cm with mass effect on adjacent structures
EKG: ST and T wave abnormality with mildly prolonged QT
- Tumor markers pending HARRY, CA 19-9, CA125, hCG, AFP pending
- for CT guided biopsy today
- Urology consult for potential cystoscopy with stent placement
- MRI abdomen pelvis today
- Follow for any new / worsening symptoms.
- No past pulm or cardiac history. RCRI 1. Echo following EKG is within normal limits. >4 METS active lifestyle with frequent exercise. Manages ADLs and IADLS independently. RCRI low risk for this procedure.
- Appreciate Metal Building Assembler-onc and surgical oncology recs
Adjustment disorder with anxiety:
- Appreciate psych recs
- Pt is motivated to seek psychotherapy through her insurance if needed. Is not interested in medication at this time and will explore support resources
DVT Prophylaxis: SCDs
Code Status: Full
Anticipated Discharge: Within 24 hours
Subjective/Interval History
-
Date of Service: January 09, 2024
Objective Data
-
Labs:
Laboratory Results
01/09/24
07:56
WBC 6.8
Hgb 13.0
Hct 39.3
Plt Count 234
Sodium 140
Potassium 4.3
Chloride 105
Carbon Dioxide 26
BUN 15
Creatinine 0.7
Glucose 111 H
Calcium 9.9
Vital Signs:
Vital Signs
Temp Pulse Resp BP Pulse Ox
97.5 F 67 18 123/84 96
01/09/24 07:20 01/09/24 07:20 01/09/24 07:20 01/09/24 07:20 01/09/24 07:20
I&O
01/08/24 01/09/24 01/10/24
06:59 06:59 06:59
Intake Total 1080 / 1080 1200 / 1200
Balance 1080 / 1080 1200 / 1200
Review of Systems
-
History Source: Patient
Constitutional: Reports No Symptoms
Respiratory: Denies Trouble Breathing
Cardiac: Denies Chest Pain or Palpitations
Abdomen/GI: Denies Abdominal Pain, Nausea or Vomiting
Genitourinary: Reports Frequency; Denies Dysuria, Difficulty Voiding or Bleeding
Physical Exam
-
General: No Apparent Distress and Comfortable
HEENT: Moist Mucous Membranes
Respiratory: Clear to Auscultation and Non Labored Respirations; Negative Wheezes, Rales, Rhonchi or Crackles
Cardiac: Regular Rhythm and S1/S2; Negative Murmur, Rub or Calf Tenderness
GI: Nontender, Normal Bowel Sounds and Distended
Genito-urinary: No Costovertebral Tender
Musculoskeletal: No Cyanosis and No Edema; Negative Clubbing
Skin: Warm and Dry
Neuro: Awake and Alert
Psych: Anxious
--- NOTE | 2024-01-09 16:04 | CONS.URO ---
Consultation
-
Requesting Provider: Gurvinder
Reason for Consultation: urinary frequency
Medical History
History of Present Illness
68y F with no significant PMH who presents to ED complaining of abdominal distention and ankle edema. Patient states that she initially noted a bloating sensation / increased abdominal girth in May / June of this year. She has noted
increased urinary frequency.
Past Medical History
Past Medical History: Other (PMH None PSH: Mohs surgery (skin ca), D&E x 2, breast biopsy (benign))
Allergies/Home Medications
Allergies
Allergy/AdvReac Type Severity Reaction Status Date / Time
acetaminophen Allergy Intermediate Unknown Verified 01/07/24 09:34
[From Darvocet-N 100]
propoxyphene Allergy Intermediate Unknown Verified 01/07/24 09:34
[From Darvocet-N 100]
Sulfa (Sulfonamide Allergy Unknown Verified 01/07/24 09:34
Antibiotics)
Home Medications
�Medication �Instructions �Recorded �Confirmed �Type
acetaminophen 500 mg tablet 1,000 mg PO Q6HPRN PRN mild pain 01/07/24 01/07/24 History
(Tylenol Extra Strength)
clindamycin phosphate 1 % topical 1 applic topical BIDPRN PRN skin 01/07/24 01/07/24 History
gel issues
multivitamin with minerals 1 tab PO DAILY Supplement 01/07/24 01/07/24 History
(Hair,Skin and Nails tablet)
naproxen sodium 220 mg tablet 220 mg PO BIDPRN PRN mild pain 01/07/24 01/07/24 History
(Aleve)
phenylephrine 0.25 %-mineral oil 1 applic [place] [facility] PRN hemorrhoids 01/07/24 01/07/24 History
14 %-petrolatm 74.9 % rectal
ointment (Preparation H)
pyridoxine (vitamin B6) 100 mg 100 mg PO DAILY Supplement 01/07/24 01/07/24 History
tablet
Physical Exam
Vital Signs
Vital Signs
Temp Pulse Resp BP Pulse Ox
98 F 65 10 110/74 94
01/09/24 15:00 01/09/24 15:16 01/09/24 15:16 01/09/24 15:16 01/09/24 15:15
Lab / Testing Results
Laboratory Results
01/09/24 07:56
01/09/24 07:56
Physical Exam
thin adult female asleep in bed
GI: Other (protuberant, firm abdomen )
Assessment / Plan
-
massive retroperitoneal mass
no evidence of ureteral obstruction [which implies that mass might be benign, such as leiomyoma]
urinary frequency due to bladder encroachment by RP mass
Rec: await biopsy results
Data Reviewed
-
CT Scan: Image personally visualized and interpreted (massive retroperitoneal mass; left-side; upwardly isplacing left kidney but no evidence of ureteral obstruction; urinary bladder's typical space is encroached upon by tumor)
[2024-01-09 21:34] LABS: CEA 2.11 ng/ml
[2024-01-10 00:30] VITALS: BP 114/70
[2024-01-10 02:04] LABS: CA 19-9 8 U/mL (<=35); HCG Male/Tumor Marker 1 IU/L (0-5)
[2024-01-10 03:17] VITALS: BP 120/77
[2024-01-10] MEDS: NSS (PRESERVATIVE FREE) 0.25 ML IV (04:29)
[2024-01-10] MEDS: ATIVAN 0.5 MG IV (04:30)
[2024-01-10 07:56] VITALS: BP 101/71
[2024-01-10 09:06] LABS: Glycohemoglobin (HgbA1c) 5.7 % (4.0-5.6)
[2024-01-10 09:55] VITALS: BMI 21.4
--- NOTE | 2024-01-10 10:09 | W.PN.GENERIC ---
Assessment / Plan
-
A/P: Massive retroperitoneal tumor
Had an MRI and a CT-guided biopsy - both pending
Clinically stable - no abdominal pain, N/V. Tolerating diet and no problems with BMs and urination
I would discharge the patient today. I can follow-up with her as outpatient.
Physician Progress Note
Subjective
No complaints.
Objective
Vital Signs
Temp Pulse Resp BP Pulse Ox
97.5 F 68 20 101/71 93
01/10/24 07:56 01/10/24 07:56 01/10/24 07:56 01/10/24 07:56 01/10/24 07:56
Lab Results
01/09/24 07:56
01/09/24 07:56
Abdomen - distended and full
--- NOTE | 2024-01-10 10:22 | W.PN.CARDCBS ---
Addendum entered and electronically signed by Gato Hudson DO 01/10/24 12:51:
I saw and examined the patient.
The Manufacturing Plant Manager's note was reviewed and I agree with the note.
Comment:
Plan:
Echo reviewed and unremarkable.
Telemetry and EKG unremarkable and stable.
She remains compensated from a cardiac perspective for invasive testing and potential surgical intervention if required.
Outpatient follow-up arranged with Dr. Aguilar
Please recall if needed.
Original Note:
Today's Communication / Plan
-
Tele, ECG and echo stable
Patient exercises 3-4 times a week at a high level without chest pain, SOB or palpitations. Patient is stable from a cardiovascular point of view to proceed with upcoming biopsy and procedures for tissue diagnosis. If surgery needed she is also
stable to proceed without further testing given she is able to obtain greater than 4 METS of activity without difficulty.
Impression / Plan
-
PCP: Unknown
Cardiology: None prior to admission
Impression:
Admitted with new pelvic mass 01/07/24
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
Abnormal ECG
Hyperglycemia, prediabetes
Echo 01/09/24: EF 60-65%, Neno EPIQ left ventricular global longitudinal strain is -21.8%, normal RV size and function, no MR, no
Plan:
-Patient had u/s guided biopsy of left sided retroperitoneal mass on 01/09/24. MRI report pending for 01/10/24. Surgical oncology and gynecologic oncology following and suspect primary retroperitoneal liposarcoma, but awaiting biopsy results.
-From a cardiac standpoint, patient with abnormal ECG with lateral T wave inversions of unclear etiology. ECG repeated 01/09/24 and it was stable. No WMA on echo and EF preserved.
-Tele reviewed by me 01/10/24 and it was unremarkable.
-BP well controlled without medications throughout visit thus far
-Hyperglycemia noted on labs and HgbA1c was 5.7 which is c/w prediabetes.
-LDL 158. Will follow up in office and consider adding statin.
-Patient exercises 3-4 times a week at a high level without chest pain, SOB or palpitations. Patient is stable from a cardiovascular point of view to proceed with upcoming biopsy and procedures for tissue diagnosis. If surgery needed she is also
stable to proceed without further testing given she is able to obtain greater than 4 METS of activity without difficulty.
HPI: Patient came to [facility] on Tuesday with increased abdominal girth and was admitted with new pelvic mass and cardiology is now consulted for an abnormal ECG. Patient noticed bloating starting around June that seemed to suddenly get worse in the
last few weeks. Patient does not see a PCP often, but is generally well and exercise 4 times a week without difficulty. 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 No known h/o CAD in her family. No previous cardiac
testing. 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 Patient is also awaiting MRI. No evidence of metastatic
disease on CT chest. Cardiology consulted for abnormal ECG with lateral T wave inversions. Patient denies chest pain. She is a cyclist and reports completing 40-50 miles a ride on weekends and also exercises in a gym with cardio and weights 3 days a
week. No recent decrease in exercise tolerance. No chest pain or ERNANDEZ with activity.
Progress Note - Juvenile Court Liaison
Subjective
Date of Service: January 10, 2024
No chest pain, she is hoping she can go home today so that she can go to work tomorrow
Objective
Labs:
01/09/24 07:56
01/09/24 07:56
Labs
Hgb 13.0 g/dL (12.0-16.0) 01/09/24 07:56
Hct 39.3 % (37.0-47.0) 01/09/24 07:56
Plt Count 234 10^3/uL (130-400) 01/09/24 07:56
PT 13.5 Sec (11.4-14.6) 01/08/24 16:48
INR 1.05 01/08/24 16:48
APTT 33.4 Sec (23.4-35.0) 01/08/24 16:48
Sodium 140 mmol/L (135-145) 01/09/24 07:56
Potassium 4.3 mmol/L (3.5-5.1) 01/09/24 07:56
BUN 15 mg/dl (7-17) 01/09/24 07:56
Creatinine 0.7 mg/dL (0.6-1.0) 01/09/24 07:56
Glucose 111 mg/dl (70-99) H 01/09/24 07:56
Vital Signs and I&O:
Vital Signs
Temp Pulse Resp BP Pulse Ox
97.5 F 68 20 101/71 93
01/10/24 07:56 01/10/24 07:56 01/10/24 07:56 01/10/24 07:56 01/10/24 07:56
Vital Signs
Temp Pulse Resp BP Pulse Ox
97.5 F 68 20 101/71 93
01/10/24 07:56 01/10/24 07:56 01/10/24 07:56 01/10/24 07:56 01/10/24 07:56
Intake & Output
01/08/24 01/09/24 01/10/24 01/11/24
06:59 06:59 06:59 06:59
Intake Total 1080 / 1080 1200 / 1200 150 / 150 240 / 240
Balance 1080 / 1080 1200 / 1200 150 / 150 240 / 240
Physical Exam
Physical Exam
GEN: NAD. AAOx3
HEENT: MMM
LUNGS: No audible wheeze
CV: SR/SB on tele
ABD: Distended, NT
EXT: Trace B/L LE edema.
NEURO: Gross non-focal
SKIN: No rash
--- NOTE | 2024-01-10 11:45 | W.PN.GYNONC ---
Today's Communication
-
dc home
Impression / Plan
-
This patient has a very large this is a 68-year-old woman with a large 27 x 23 cm mass presenting to the emergency room for abdominal swelling and lower extremity edema.
I have personally reviewed the images and feel that the mass is probably retroperitoneal as it is causing elevation of left kidney, displacement of the ureter from left to right side as well as mass effect on the pancreas.
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
My recommendations are as follows
1. I appreciate input from our cardiology colleagues regarding clearance for upcoming surgery.
2. surgical oncology input is appreciated, percutaneous biopsy was performed yesterday, I have asked pathology to expedite interpretation.
Case to be discussed in our weekly tumor board conference and discussion for preoperative radiation therapy for surgical resection versus immediate surgery
3. Consult urology, their services will be likely necessary for cystoscopy stent placement and assistance in surgery
4. CT thorax is completed, there is no evidence of pulmonary embolism and there is no evidence of metastatic disease
5. Patient will likely follow-up as an outpatient with surgical oncology and myself in her surgery will be planned.
I do anticipate uterus cervix bilateral tubes and ovaries will be removed as part of her surgery.
ok for dc home from my perspective
Subjective / Interval History
-
Patient appears to be overall calm though remain worried about recovery from an extensive abdominal surgery. She does not have any pain
Bowel function is normal. She did not have any nausea or vomiting.
Objective Data
-
Lab Results:
01/09/24 07:56
01/09/24 07:56
Exams: MR Abdomen W/o & W Contrast; MR Pelvis W/o & With Contrast
PROCEDURE: MR Abdomen W/o  W Contrast. MR Pelvis W/o  W Contrast
CLINICAL INDICATION: Left retroperitoneal mass.
TECHNIQUE: MRI examinations of the abdomen and pelvis was performed without and with intravenous contrast on a 3 Dorothea magnet. Imaging was performed before and after the intravenous administration of 10 mL Clariscan gadolinium contrast material.
COMPARISON: CT abdomen/pelvis 12/30/2023.
FINDINGS:
CHEST: Subsegmental atelectasis in the bilateral lung bases. Small hiatal hernia.
ABDOMEN/PELVIS:
Redemonstration of a large mass in the abdomen eccentric to the left extending into the left retroperitoneum below the left kidney and into the pelvis measuring 26.0 x 14.5 x 28.1 cm. Signal characteristics show primarily T2 hyperintense signal and
T1 hypointense signal. Some macroscopic fat signal intensity is noted mostly about the periphery of the mass. No postcontrast enhancement is appreciated, although a few enhancing vessels course through the right lateral aspect of the mass.
Mild extrahepatic bile duct dilatation measuring 0.8 cm in diameter. No significant intrahepatic ductal dilatation. The gallbladder is unremarkable. Tiny cysts in the posterior right hepatic lobe. The pancreas, spleen, bilateral adrenal glands, and
kidneys are unremarkable, other than mass effect and superior displacement of the left kidney. No hydronephrosis.
The abdominal aorta is normal in caliber, tortuous in course.
No abdominal or retroperitoneal lymphadenopathy.
Mild pelvic free fluid. Retroverted uterus containing multiple fibroids. The bilateral ovaries appear to be atrophic and are difficult to clearly identified on this exam. The urinary bladder is collapsed.
SKELETON: Chronic degenerative changes of the spine
IMPRESSION:
Redemonstration of a large mass in the abdomen and pelvis measuring up to 28.1 cm that looks to be arising from the left retroperitoneum. The presence of some macroscopic fat signal would be compatible with a retroperitoneal liposarcoma. A large
ovarian dermoid would be an alternative consideration, probably less likely, but the ovaries are not well seen on this exam. Recommend correlation with biopsy results when they become available.
Electronically signed by Hari Vieyra, 01/10/2024 11:14 AM
Dictated By: Sekou Vieyra DO
Dictated Date & Time: 01/10/24 1047
Physical Exam
Vital Signs / I&O
Vitals
Temp Pulse Resp BP Pulse Ox
97.5 F 68 20 101/71 93
01/10/24 07:56 01/10/24 07:56 01/10/24 07:56 01/10/24 07:56 01/10/24 07:56
I&O
01/08/24 01/09/24 01/10/24 01/11/24
06:59 06:59 06:59 06:59
Intake Total 1080 / 1080 1200 / 1200 150 / 150 240 / 240
Balance 1080 / 1080 1200 / 1200 150 / 150 240 / 240
Physical Exam
Cardiac: S1/S2 and Regular Rhythm
GI: Soft, Non Tender and Distended
Data Reviewed
-
MRI: Image personally visualized and interpreted
[2024-01-10 11:57] VITALS: BP 112/70
[2024-01-10 13:35] LABS: CA 125 24.1 U/mL (0-35)
[2024-01-10 13:39] LABS: AFP Male/Tumor Marker 4.14 ng/ml
--- NOTE | 2024-01-10 14:43 | CM ---
entered order for discharge.
Spoke with pt she said she had ride home.
She declined VN .
Home with no needs .PCP information given for [facility] [phone]
--- NOTE | 2024-01-10 15:38 | W.PN.HOSP.TC ---
Addendum entered and electronically signed by Pablo Costa MD 01/10/24 23:42:
Attending Addendum-
I saw and evaluated the patient. I reviewed the resident�s note and agree with findings and plan as documented in the resident�s note. Sub: patient visibly upset upon entry to room. cursing. standing in corner of room. 'i just wanna get the hell
outta here. rogelio done everything you've asked' no pain complaints. Full 12 point ROS reviewed and negative except as documented Exam: Vitals reviewed in chart GEN-mod distress due to anxiety/agitation, heart RRR lungs clear abd distended tender full,
mild tender @ bx site, LE no edema
Plan
# Massive Pelvic Mass-
-likely malignant
- CT A/P-01/06 mass with heterogeneous density including a significant fat component. most likely arising from the left ovary. measures 27.4 cm craniocaudal by 23.3 cm transverse by approximately 12 cm AP.
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
- Irad bx- 01/08- pending
- 01/09-MRI abdomen-Redemonstration of a large mass in the abdomen and pelvis measuring up to 28.1 cm that looks to be arising from the left retroperitoneum. 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
liposarcoma. A large ovarian dermoid would be an alternative consideration
- c/s uro for eval and follow up
- low cardiac risk medically optimized for surgery
- appreciate consults and input from my colleagues- follow up set up
# Anxiety
- ativan prn
- psych on board
- need close OP follow UP
DVTp- scds
Time spent coordinating care, DC planning, review of DC plan of care with resident, transition of care, review of records, med rec/scripts sent electronically, consults, notes, d/w consultants, nursing, family, gyne/onc, and CM� 37 mins
Original Note:
Today's Communication/Plan
-
DC planning
Assessment / Plan
Assessment / Plan
Impression: 68y F with no significant PMH who presents with large abdominal mass.
Left Abdominal / Pelvic Mass:
Worsening abdominal distention x 7 months without pain, with urinary urgency and bilateral LE edema
Chest CT: no pulmonary embolism. There is no evidence of pulmonary metastasis. There is subsegmental atelectasis at the left lung base
Large mass in the L abdomen / pelvis 27cm/23cm with mass effect on adjacent structures
EKG: ST and T wave abnormality with mildly prolonged QT
- Tumor markers pending
- s/p US/Xray guided biopsy, pending path report
- Appreciate urology input: No urinary obstruction
- MRI abdomen pelvis: 8.1 cm that looks to be arising from the left retroperitoneum. 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
- Follow for any new / worsening symptoms.
- No past pulm or cardiac history. Low cardiac risk. Echo following EKG is within normal limits. >4 METS active lifestyle with frequent exercise. Manages ADLs and IADLS independently.
- Appreciate [facility]-onc and surgical oncology recs. Will need outpatient follow ups
Adjustment disorder with anxiety:
- Appreciate psych recs
- Pt is motivated to seek psychotherapy through her insurance if needed. Is not interested in medication at this time and will explore support resources
DVT Prophylaxis: SCDs
Code Status: Full
Anticipated Discharge: Today
Subjective/Interval History
-
Date of Service: January 10, 2024
Objective Data
-
Labs:
Laboratory Results
01/09/24
07:56
WBC 6.8
Hgb 13.0
Hct 39.3
Plt Count 234
Vital Signs:
Vital Signs
Temp Pulse Resp BP Pulse Ox
98.5 F 94 20 112/70 94
01/10/24 11:57 01/10/24 11:57 01/10/24 11:57 01/10/24 11:57 01/10/24 11:57
I&O
01/09/24 01/10/24 01/11/24
06:59 06:59 06:59
Intake Total 1200 / 1200 150 / 150 640 / 640
Balance 1200 / 1200 150 / 150 640 / 640
Review of Systems
-
History Source: Patient
Respiratory: Denies Trouble Breathing
Cardiac: Denies Chest Pain, Palpitations or Syncope
Abdomen/GI: Denies Abdominal Pain, Nausea, Vomiting, Constipated or Bloody Stools
Genitourinary: Reports Frequency; Denies Dysuria or Difficulty Voiding
Physical Exam
-
General: No Apparent Distress and Comfortable
HEENT: Normocephalic, Atraumatic and Anicteric
Respiratory: Clear to Auscultation and Non Labored Respirations; Negative Wheezes, Rales, Rhonchi or Crackles
Cardiac: Regular Rhythm and S1/S2; Negative Murmur, Rub or Calf Tenderness
GI: Nontender, Normal Bowel Sounds and Distended; Negative Soft
Genito-urinary: No Costovertebral Tender
Skin: Warm and Dry
Neuro: Awake and Alert
Psych: Anxious
--- NOTE | 2024-01-10 17:20 | W.DCSUMMARY ---
Addendum entered and electronically signed by Pablo Costa MD 01/10/24 23:42:
Read, reviewed, and agree. See same day progress note for additional details.
Ricardo Costa MD
Original Note:
Documented by User: Genia Chamorro MD, Resident 01/10/24 18:00
Discharge Summary
Discharge Data
Date of Admission: 01/07/24
Date of Discharge: 01/10/24
-
Pending Results: Yes
Additional Pending Results:
Biopsy specimen pathology results
Tumor markers
Hospital Course
Discharging Physician : Pablo Costa MD; Genia Chamorro MD.
Disposition : Home
Primary care physician : Genia Chamorro MD
Principal Discharge diagnosis : large left abdominal/retroperitoneal mass, hypercholesterolemia
Chronic Discharge diagnosis :
Hospital Course : 68-year-old female with no known medical history who presents to the ED with painless worsening abdominal distention x 7 months, bilateral lower extremity edema, and urinary frequency. On arrival to the ED she was alert and
oriented, with no complaints of pain, afebrile, with stable vital signs.
Chest x-ray with no significant findings, peripheral vascular ultrasound with no signs of DVT. CT chest with atelectasis of lung base only. Hematology and chemistries were normal. However, CT abdomen and pelvis and pelvic transvaginal ultrasound
demonstrated a large 27cm abdominal mass with significant mass effect on adjacent structures.
Surgery, gynecology oncology, surgical oncology were consulted for care planning. A successful X-ray/ultrasound biopsy of the mass was conducted. MRI images for better visualization of the mass was done. Based on imaging findings, this is assumed
to be retroperitoneal, and possibly a liposarcoma vs ovarian dermoid. However, biopsy pathology results are pending at time of discharge. Urology consult was placed to assess urinary function with mass effect causing urinary frequency but no
obstruction. EKG showed normal sinus rhythm with T wave abnormality in lateral leads and prolonged QT. Given need for surgical intervention, cardiology was consulted and an echo was done. Echo showed normal systolic and diastolic function with no
acute significant findings. She was assess to have low cardiac risk for surgery.
Patient remained hemodynamically stable throughout stay with no new complaints. She was stable for discharge to home with no restrictions on previous activity and no new medications, and is to follow up with Gynecologic oncology, surgical oncology
for surgery planning, and cardiology in the outpatient setting. She can follow up with PCP as needed.
Important imaging findings :
Pelvis MRI 01/09: Redemonstration of a large mass in the abdomen and pelvis measuring up to 28.1 cm that looks to be arising from the left retroperitoneum. 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
liposarcoma. A large ovarian dermoid would be an alternative consideration, probably less likely, but the ovaries are not well seen on this exam. Recommend correlation with biopsy results when they become available.
Abdomen MRI 01/09: Redemonstration of a large mass in the abdomen and pelvis measuring up to 28.1 cm that looks to be arising from the left retroperitoneum. 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
liposarcoma. A large ovarian dermoid would be an alternative consideration, probably less likely, but the ovaries are not well seen on this exam. Recommend correlation with biopsy results when they become available.
Chest CT 01/07: No pulmonary embolism. No evidence of pulmonary metastasis. Subsegmental atelectasis at the left lung base.
Pelvic/Transvaginal US 01/06: 1).There is a large heterogeneous mass in the abdomen and pelvis, incompletely imaged on this study and corresponding with the mass seen on the CT examination. This mass measures approximately 16 x 29 x 37.5 cm in AP,
transverse and craniocaudal dimensions and is relatively echogenic sonographically which along with the CT findings is suspicious for dermoid tumor 2). Fibroid uterus
Abd/pelv CT 01/06: There is a large mass within the pelvis and extending into the abdomen. This has heterogeneous density with significant component of fat density. Findings suggest a large dermoid, likely arising from the left ovary with
significant associated mass effect. Of note, torsion of this mass cannot be excluded by imaging findings, and clinical correlation is advised. Small amount of free pelvic fluid in the posterior pelvic cul-de-sac.
Peripheral vasc US 01/06: Normal. No evidence of deep venous thrombosis
Chest X-ray 01/06: On the lateral view, thin oblique linear densities projecting over the lower lobes, compatible with linear atelectasis and/or scarring. The cardiac silhouette, vascular markings, and mediastinal shadow appear normal
Discharge Plan
-
Patient Disposition: Home (Routine Discharge)
Discharge Diagnosis/Procedures: Large retroperitoneal mass, Hypercholesterolemia
Diet: No restrictions
Activity: No restrictions
Driving Restrictions: As prior to admission
Bathing Restrictions: None
Stand Alone Forms: Return to Work
Referrals:
Genia Chamorro MD, Resident [[facility] Resident Year2] -
Israel Fuller MD [Active] -
Lauren Cole MD [Active] - 03/14/24 8:40 am (You have an appt to see Dr. Lauren Cole at the [place] office on 03/14/24 at 8:40 AM. Please call [phone] if you need to reschedule.)
Terry Hickman MD [Active] -
UNKNOWN - PT DOES,NOT KNOW [Family Provider] -
Additional Discharge Medication Instructions: Follow-up as an outpatient with surgical oncologist Dr. Israel Fuller; and with gynecologic oncologist Dr. Terry Hickman, and your surgery will be planned.
Your pathology results are pending and will be communicated to you when they become available.
Your tumor marker blood test results will also be discussed when they are available
Follow up with in service coordinator Dr. Lauren Cole
Prescriptions:
Continued
acetaminophen [Tylenol Extra Strength] 500 mg Tablet
1,000 mg PO Q6HPRN PRN (Reason: mild pain)
clindamycin phosphate 1 % Gel
1 applic TOPICAL BIDPRN PRN (Reason: skin issues)
naproxen sodium [Aleve] 220 mg Tablet
220 mg PO BIDPRN PRN (Reason: mild pain)
pyridoxine (vitamin B6) 100 mg Tablet
100 mg PO DAILY
Hair,Skin and Nails Tablet
1 tab PO DAILY
Preparation H 0.25-14-74.9 % Ointment
1 applic MO AMHS PRN (Reason: hemorrhoids)
Discharge Orders:
Discharge Patient (As Directed); Ordered 01/10/24
Ordered By: Genia Chamorro
Discharge Date and Time
Discharge Date/Time: 01/10/24 14:06
Print Language: NAMIBIAN

Documented by User: Pablo Costa MD 01/10/24 23:35
Discharge Summary
Discharge Data
Date of Admission: 01/07/24
Date of Discharge: 01/10/24
Discharge Plan
-
Patient Disposition: Home (Routine Discharge)
Discharge Diagnosis/Procedures: Large retroperitoneal mass, Hypercholesterolemia
Diet: No restrictions
Activity: No restrictions
Driving Restrictions: As prior to admission
Bathing Restrictions: None
Stand Alone Forms: Return to Work
Referrals:
Genia Chamorro MD, Resident [Family Practice Resident Year2] -
Israel Fuller MD [Active] -
Lauren Cole MD [Active] - 03/14/24 8:40 am (You have an appt to see Dr. Lauren Cole at the [place] office on 03/14/24 at 8:40 AM. Please call [phone] if you need to reschedule.)
Terry Hickman MD [Active] -
UNKNOWN - PT DOES,NOT KNOW [Family Provider] -
Additional Discharge Medication Instructions: Follow-up as an outpatient with surgical oncologist Dr. Israel Fuller; and with gynecologic oncologist Dr. Terry Hickman, and your surgery will be planned.
Your pathology results are pending and will be communicated to you when they become available.
Your tumor marker blood test results will also be discussed when they are available
Follow up with in service coordinator Dr. Lauren Cole
Prescriptions:
Continued
acetaminophen [Tylenol Extra Strength] 500 mg Tablet
1,000 mg PO Q6HPRN PRN (Reason: mild pain)
clindamycin phosphate 1 % Gel
1 applic TOPICAL BIDPRN PRN (Reason: skin issues)
naproxen sodium [Aleve] 220 mg Tablet
220 mg PO BIDPRN PRN (Reason: mild pain)
pyridoxine (vitamin B6) 100 mg Tablet
100 mg PO DAILY
Hair,Skin and Nails Tablet
1 tab PO DAILY
Preparation H 0.25-14-74.9 % Ointment
1 applic MO AMHS PRN (Reason: hemorrhoids)
Discharge Orders:
Discharge Patient (As Directed); Ordered 01/10/24
Ordered By: Genia Chamorro
Discharge Date and Time
Discharge Date/Time: 01/10/24 14:06
Print Language: NAMIBIAN
== END 2024-01-10 14:06 | disposition home or self-care (01) | DRG 845 ==
LOC: 3 WEST ACU 17:12
PROVIDERS: Physician Assistant; Physician Assistant Medical; Radiology Diagnostic Radiology; Student in an Organized Health Care Education/Training Program; ADMITTING PHYSICIAN Hospitalist; ATTENDING PHYSICIAN Family Medicine; CONSULT PHYSICIAN Obstetrics & Gynecology Gynecologic Oncology; CONSULT PHYSICIAN Specialist; CONSULT PHYSICIAN Surgery; EMERGENCY PHYSICIAN Emergency Medicine; OTHER PHYSICIAN Internal Medicine Cardiovascular Disease; OTHER PHYSICIAN Psychiatry & Neurology Psychiatry
PROC: 0WBH3ZX Excision of Retroperitoneum, Percutaneous Approach, Diagnostic (ICD-10-PCS; 2024-01-09)
DX: C48.0 Malignant neoplasm of retroperitoneum (principal); F43.22 Adjustment disorder with anxiety; F40.240 Claustrophobia; E78.00 Pure hypercholesterolemia, unspecified; Z88.6 Allergy status to analgesic agent; Z88.2 Allergy status to sulfonamides; Z78.0 Asymptomatic menopausal state
CPT/HCPCS: 88305; 49180; 71046; 71275; 72197; 74177; 74183; 76830; 76856; 76942; 80048; 80053; 80061; 81003; 82105; 82248; 82378; 82962; 83036; 83615; 83690; 83880; 84443; 84702; 85025; 85027; 85610; 85730; 86301; 86304; 88333; 88341; 88342; 93005; 93306; 93970; 99152; 99153; 99285; A9575; Q9967

== ENCOUNTER → 2024-01-25 09:09 | Outpatient (REF) | payer BC, SELFPAY | LOC: HWWDC 09:09 | PROVIDERS: ATTENDING PHYSICIAN Student in an Organized Health Care Education/Training Program | DX: Z12.31 Encounter for screening mammogram for malignant neoplasm of breast (principal) | CPT/HCPCS: 77063; 77067 ==

== ENCOUNTER 2024-02-10 08:28 | Inpatient (IN) | payer BC, MEDICARE, SELFPAY ==
--- NOTE | 2024-02-03 14:52 | PTCARENOTE ---
Dr. Bass reviewed patients 01/08 ECG- requested ECG be repeated, will contact patient regarding additional required testing.
[2024-02-07 09:34] VITALS: BMI 22.4
--- NOTE | 2024-02-07 15:38 | PTCARENOTE ---
Patients 02/06 ECG abnormal-reviewed by Dr. Liu, cardiology clearance requested. Joanna @ Dr. King office notified.
[2024-02-10] VITALS (28 sets, daily range): BP systolic 82–146; BP diastolic 39–95; BMI 22.4; BMI 20.8
[2024-02-10] MEDS: HEPARIN 5000 UNITS SC ×2 (08:29→20:01)
[2024-02-10] MEDS: NEURONTIN 300 MG PO (08:29)
[2024-02-10] MEDS: TYLENOL 1000 MG PO (08:30)
[2024-02-10] MEDS: EMEND 40 MG PO (08:42)
[2024-02-10] MEDS: TRANSDERM-SCOP 1 PATCH TRANSDERM (08:42)
[2024-02-10 10:40] LABS: B.E. - POC -0.8 mmol/L; Glucose - POC 102 mg/dl (70-99); HCO3 - POC 25 mmol/L (21-28); Hematocrit - POC 34 % PCV (37-47); Hemodilution- POC Yes; Hemoglobin Calculated - POC 11.6; Ionized Calcium - POC 1.24 mmol/L (1.15-1.33); Lactate - POC 0.61 mmol/L (0.36-0.75); O2 Saturation %Calculated-POC 99.7 % (94-98); PCO2 - POC 45 mmHg (35-48); PO2 - POC 209 mmHg (83-108); Potassium - POC 4.2 mmol/L (3.5-5.1); Sodium - POC 143 mmol/L (136-145); pH - POC 7.35 (7.35-7.45)
[2024-02-10 13:38] LABS: B.E. - POC -3.8 mmol/L; Glucose - POC 144 mg/dl (70-99); HCO3 - POC 21 mmol/L (21-28); Hematocrit - POC 30 % PCV (37-47); Hemodilution- POC Yes; Hemoglobin Calculated - POC 10.1; Ionized Calcium - POC 1.08 mmol/L (1.15-1.33); O2 Saturation %Calculated-POC 99.6 % (94-98); PCO2 - POC 38 mmHg (35-48); PO2 - POC 190 mmHg (83-108); Potassium - POC 3.4 mmol/L (3.5-5.1); Sodium - POC 142 mmol/L (136-145); pH - POC 7.36 (7.35-7.45)
--- NOTE | 2024-02-10 14:54 | OR.RPT ---
Operative Report
Operative Report
Preop diagnosis: retroperitoneal tumor w/ involvement of left ovary
Postop diagnosis: same
Procedure: left oophorectomy, left partial salpingectomy
Surgeon: Roberto
Anesthesia: general
EBL: minimal for this portion of the procedure
Complications: none
Findings: normal appearing left ovary with attachment to retroperitoneal tumor. Normal appearing left fallopian tube and uterus. Right adnexa was not visualized.
Indication: Patient is a 68yo female who presented for surgery to removal of retroperitoneal tumor by Dr. Fuller. I was consulted intraop to remove the left ovary because it was attached to the tumor.
Procedure: See Dr. Fuller's operative report for his portion of the procedure. There was a midline vertical incision made by Dr. Fuller. The left ovary was identified the the infundibulopelvic ligament was transected with the Voyant device. A portion of
the left fallopian tube was removed along the mesosalpinx with the Voyant device. A window was made in the mesosalpinx with a right angle and the fallopian tube was transected with the Voyant. Good hemostasis was noted. The remainder was the
procedure was performed by Dr. Fuller.
[2024-02-10] MEDS: NEURONTIN PO (16:56)
[2024-02-10] MEDS: ANCEF 10 IV (17:00)
[2024-02-10] MEDS: D5/0.9% SODIUM CHLORIDE 1000 IV (17:13)
[2024-02-10] MEDS: COLACE 100 MG PO (20:00)
[2024-02-10] MEDS: PEPCID 20 MG IV (20:02)
[2024-02-10] MEDS: NSS (PRESERVATIVE FREE) 8 ML IV (20:02)
[2024-02-10] MEDS: DILAUDID 1 MG IV (20:03)
--- NOTE | 2024-02-10 20:32 | PTCARENOTE ---
recieved pt from pacu to floor at 1635.see worklist. iv fluids infusing. pt drowsy but awakens easily. reports some crampy abd pain but dozes off when undisturbed. midline abd dressing clean, dry and intact. pt tolerating sips of clear liquids with
no nausea. sinus rythym /sinus gina on monitor.
[2024-02-11] VITALS (60 sets, daily range): BP systolic 79–130; BP diastolic 46–87
[2024-02-11] MEDS: NEURONTIN PO ×2 (00:23→10:18)
[2024-02-11] MEDS: OFIRMEV 100 IV (01:35)
[2024-02-11] MEDS: ANCEF 10 IV ×4 (01:36→23:47)
[2024-02-11] MEDS: NSS 500 IV (02:09)
--- NOTE | 2024-02-11 02:35 | PTCARENOTE ---
pt with blood tinged urine output, 650 ml. BP's reading low. 85/51(63) . HR 55. RR 9. Sat 99% on 2L 02. Pt arousable, but drowsy. Pt pale. midline abd incision with scant yolanda sized old drainage. abdomen tender. SHANK BURNISHER notified of assessment. order
received for labs and 500 bolus. orders implemented.
--- NOTE | 2024-02-11 03:05 | PTCARENOTE ---
Post bolus BP 79/46(57). hgb 9.2. HOUSING COORDINATOR notified. CERTIFIED VEHICLE FIRE INVESTIGATOR to bedside to assess.
[2024-02-11 03:15] LABS: % Basophils 0.1 % (0-2); % Immature Granulocytes 0.2 % (0-0.5); % Lymphocytes 7.4 % (20.5-51.1); % Monocytes 7.4 % (1.7-9.3); % Neutrophils 84.9 % (42.2-75.2); Absolute Lymphocytes 0.7 10^3/uL (1.2-3.4); Absolute Monocytes 0.7 10^3/uL (0.1-0.6); Absolute Neutrophils 7.9 10^3/uL (1.4-6.5); Hematocrit 27.7 % (37.0-47.0); Hemoglobin 9.2 g/dL (12.0-16.0); Mean Corp Hgb Conc. 33.2 g/dL (33.0-37.0); Mean Corpuscular Hgb 31.3 pg (27.0-31.0); Mean Corpuscular Volume 94.2 fL (81.0-99.0); Mean Platelet Volume 11.4 fL (7.4-10.4); Nucleated Red Blood Cells % 0 %; Platelet Count 162 10^3/uL (130-400); Red Blood Cell Count 2.94 10^6/uL (4.20-5.40); Red Cell Dist. Width 14.4 % (11.5-14.5); White Blood Cell Count 9.2 10^3/uL (4.8-10.8)
[2024-02-11 03:40] LABS: ALT (SGPT) 27 U/L (0-35); AST (SGOT) 52 U/L (14-36); Albumin 2.7 g/dl (3.5-5.0); Alkaline Phosphatase 32 U/L (38-126); Blood Urea Nitrogen 9 mg/dl (7-17); Calcium 8.2 mg/dl (8.4-10.2); Carbon Dioxide 21 mmol/L (22-30); Chloride 108 mmol/L (98-107); Estimated Creatinine Clearance 52 ml/min; Glucose 192 mg/dl (70-99); Potassium 4.5 mmol/L (3.5-5.1); Sodium 139 mmol/L (135-145); Total Bilirubin 0.5 mg/dl (0.2-1.3); Total Protein 4.6 g/dl (6.3-8.2); eGFR > 60.00
--- NOTE | 2024-02-11 04:30 | W.PN.UPDATE ---
Update Note
Progress Note Update
-around midnight, patient is hypotensive with bp 86/53, No sign of bleeding was noted. 500cc of NSS IV bolus was given. Bp continue to drop down, BP after bolus is 79/46. IVF rate increased to 125ml/hr.
-On assessment, Patient is alert and awake, noted with LT side of abdomen protruded/swelling, soft to touch. Not clear if this protrusion area is new or was present post op.
-Stat lab/hgb ordered. Hgb level is 9.2 last hgb recorded in the chart is 13. With the current status of hypotension and the drop in the hgb level will give one unit of blood.
-Spoke to Dr. Fuller Surgeon, new recommendations received of :-
.adding another unit of blood to be total of 2 units.
.Monitoring the abdominal site for any changing or increasing in the size.
.Holding pain med at the mean time.
.Contact Dr. Fuller with any changes [phone]
[2024-02-11] MEDS: D5/0.9% SODIUM CHLORIDE 1000 IV ×3 (06:01→21:40)
[2024-02-11 06:31] LABS: Hematocrit 30.1 % (37.0-47.0); Hemoglobin 10.2 g/dL (12.0-16.0); Mean Corp Hgb Conc. 33.9 g/dL (33.0-37.0); Mean Corpuscular Volume 94.4 fL (81.0-99.0); Mean Platelet Volume 11.1 fL (7.4-10.4); Platelet Count 160 10^3/uL (130-400); Red Blood Cell Count 3.19 10^6/uL (4.20-5.40); Red Cell Dist. Width 14.6 % (11.5-14.5); White Blood Cell Count 10.1 10^3/uL (4.8-10.8)
[2024-02-11 06:38] LABS: INR 1.26; PT 15.6 Sec (11.4-14.6)
--- NOTE | 2024-02-11 06:48 | PTCARENOTE ---
Pt bradying down to 44. abdomen palpated. crepitus felt where right abdomen is distended. BATON TWIRLER notified. Dr. Fuller called.
[2024-02-11 06:52] LABS: ALT (SGPT) 26 U/L (0-35); AST (SGOT) 46 U/L (14-36); Albumin 2.7 g/dl (3.5-5.0); Alkaline Phosphatase 33 U/L (38-126); Blood Urea Nitrogen 9 mg/dl (7-17); Calcium 8.1 mg/dl (8.4-10.2); Carbon Dioxide 25 mmol/L (22-30); Chloride 108 mmol/L (98-107); Estimated Creatinine Clearance 60 ml/min; Glucose 207 mg/dl (70-99); Potassium 4.6 mmol/L (3.5-5.1); Sodium 140 mmol/L (135-145); Total Bilirubin 0.5 mg/dl (0.2-1.3); Total Protein 4.7 g/dl (6.3-8.2); eGFR > 60.00
[2024-02-11] MEDS: COLACE PO (08:00)
--- NOTE | 2024-02-11 08:01 | PTCARENOTE ---
Addendum entered by Argelia Reed RN 02/11/24 08:13:
Instructed to maintain corral catheter for strict u/o.
Original Note:
Assumed care of patient at beginning of this shift from previous RN. Patient just ended 1st unit of PRBCs prior to start of this shift. Patient sent for stat CT abd; Dr Fuller in to see patient on return. Instructed to hold off on 2nd unit PRBCs, hold
meds and maintain NPO status until he reads CT scan. Patient Ox3, very anxious and occasionally tearful; c/o incisional pain but denies further abdominal pain. Dr Fuller aware pain meds on hold at this time d/t low bp and heart rate; he will assess.
Emotional support provided to patient.
[2024-02-11] MEDS: NSS (PRESERVATIVE FREE) 8 ML IV ×2 (08:49→20:34)
[2024-02-11] MEDS: PEPCID 20 MG IV ×2 (08:50→20:34)
[2024-02-11] MEDS: HEPARIN 5000 UNITS SC ×2 (08:50→20:34)
--- NOTE | 2024-02-11 09:28 | PTCARENOTE ---
Urine continues to be harshal/blood tinged; Dr Fuller aware. Bed bath and corral care completed; patient refused to turn to get her back washed/lotion. Instructed in need for frequent position changes to prevent skin breakdown; assisted to turn and pillow
placed behind her back.
[2024-02-11] MEDS: DILAUDID 0.25 MG IV ×2 (10:55→15:35)
--- NOTE | 2024-02-11 11:39 | W.PN.SURGUPD ---
Surgical Update
Surgical Update
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
Hgb this AM 10.2
[address] scan performed earlier this AM reveals a considerable amount of SQ gas left side. Left JJ stent has migrated distally, yet there is no left hydronephrosis
---
Patient is afebrile
Borderline hypotension but not tachycardic
Wagner draining minimally bloody urine: expected
Crepitus on examination most prominent in LLQ
Keep Wagner
Left JJ stent to be removed as outpatient
Will follow
--- NOTE | 2024-02-11 11:55 | PTCARENOTE ---
Reviewed IS with patient and encouraged to use 10x/hr or several times with each commercial if watching TV. Patient needed instruction on how to use but was able to demonstrate appropriate use with teach back.
--- NOTE | 2024-02-11 16:31 | PTCARENOTE ---
Dr Fuller in to reassess patient and speak with patient and her ex-. Patient requested ex- be listed as person to contact; chart updated.
[2024-02-11 17:23] LABS: % Basophils 0.1 % (0-2); % Eosinophils 0.1 % (0-6); % Immature Granulocytes 0.2 % (0-0.5); % Lymphocytes 14.9 % (20.5-51.1); % Monocytes 7.4 % (1.7-9.3); % Neutrophils 77.3 % (42.2-75.2); Absolute Lymphocytes 1.4 10^3/uL (1.2-3.4); Absolute Monocytes 0.7 10^3/uL (0.1-0.6); Absolute Neutrophils 7.4 10^3/uL (1.4-6.5); Hematocrit 31.2 % (37.0-47.0); Hemoglobin 10.7 g/dL (12.0-16.0); Mean Corp Hgb Conc. 34.3 g/dL (33.0-37.0); Mean Corpuscular Hgb 30.7 pg (27.0-31.0); Mean Corpuscular Volume 89.4 fL (81.0-99.0); Mean Platelet Volume 10.9 fL (7.4-10.4); Nucleated Red Blood Cells % 0 %; Platelet Count 163 10^3/uL (130-400); Red Blood Cell Count 3.49 10^6/uL (4.20-5.40); White Blood Cell Count 9.6 10^3/uL (4.8-10.8)
--- NOTE | 2024-02-11 17:31 | W.PN.GENERIC ---
Assessment / Plan
-
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
Her decreased Hg represents intraoperative and some postoperative blood loss, and hemodilution. There is no evidence of hematoma/active bleeding. We will hold the�transfusion and continue IVF.
Her SQ air is most likely postoperative changes, but it can also represent bowel perforation. I discussed her options with the patient, her ex-, and her son, which included observation versus re-exploration. She opted to be observed since she
is hemodynamically stable without fevers or leukocytosis. If there is any evidence of sepsis, she is agreeable to re-exploration. We will continue to follow CBC and close observation.
Physician Progress Note
Subjective
She is complaining of incisional pain. No nausea. She had some episodes of hypotension with systolic pressure in the 80s but bradycardia with heart rate in the 40s and 50s. She received 1 Unit of PRBCs and IVF bolus. Also, she was found to have
subcutaneous air on the left side of her�abdomen.
Objective
Vital Signs
Temp Pulse Resp BP Pulse Ox
98.1 F 60 11 104/57 97
02/11/24 11:05 02/11/24 13:00 02/11/24 13:00 02/11/24 13:00 02/11/24 13:00
Lab Results
02/11/24 17:14
Afebrile Now her systolic BPs in 100�s, with HR in 60s and 70s.
Abdomen � soft, minimally distended but soft. There is SQ air in the left side of the abdominal wall extending to the left flank.
CT abdomen and pelvis this AM showed pneumoperitoneum and mild ascites, consistent with the�history of recent abdominal surgery. The left anterior abdominal wall subcutaneous gas is also likely related to a�recent surgical procedure. There was no
obvious evidence of retroperitoneal hematoma.
[2024-02-11 17:43] LABS: Blood Urea Nitrogen 9 mg/dl (7-17); Calcium 8.2 mg/dl (8.4-10.2); Carbon Dioxide 25 mmol/L (22-30); Chloride 109 mmol/L (98-107); Estimated Creatinine Clearance 52 ml/min; Glucose 142 mg/dl (70-99); Potassium 4.2 mmol/L (3.5-5.1); Sodium 140 mmol/L (135-145); eGFR > 60.00
[2024-02-11] MEDS: DILAUDID 0.5 MG IV (18:41)
--- NOTE | 2024-02-11 20:00 | PTCARENOTE ---
Patient received in bed, drowsy but arousable. Oriented x3. Anxious and tearful when awoken. NSR on monitor, blood pressure as documented. Palpable pulses throughout, no edema noted. Knee high teds/scds maintained. Lungs clear, pulse ox 98% on
room air. Abdomen round soft with hypoactive bowel sounds. Crepitus noted on left side of abdomen (unchanged from previous assessment). Wagner draining blood tinged harshal urine. Midline aquacell with scant old drainage. #16 g in RFA with IVF
infusing as ordered. #16 g, #18 g in left arm, flushed and patent.
[2024-02-12] VITALS (24 sets, daily range): BP systolic 123–158; BP diastolic 47–103; PULSE 75–80; O2SAT 96
[2024-02-12] MEDS: DILAUDID 0.5 MG IV ×5 (00:03→17:09)
--- NOTE | 2024-02-12 00:32 | PTCARENOTE ---
Patient medicated with prn dilaudid, attempted to reposition patient in bed, patient yelling out and and crying that she cant do it. emotional support given. Patient now resting with eyes closed
[2024-02-12] MEDS: D5/0.9% SODIUM CHLORIDE 1000 IV ×2 (04:22→12:05)
[2024-02-12 05:08] LABS: % Basophils 0.3 % (0-2); % Eosinophils 0.6 % (0-6); % Immature Granulocytes 0.2 % (0-0.5); % Lymphocytes 14.2 % (20.5-51.1); % Monocytes 7.8 % (1.7-9.3); % Neutrophils 76.9 % (42.2-75.2); Absolute Eosinophils 0.1 10^3/uL (0-0.7); Absolute Lymphocytes 1.3 10^3/uL (1.2-3.4); Absolute Monocytes 0.7 10^3/uL (0.1-0.6); Absolute Neutrophils 6.9 10^3/uL (1.4-6.5); Hematocrit 32.8 % (37.0-47.0); Hemoglobin 10.9 g/dL (12.0-16.0); Mean Corp Hgb Conc. 33.2 g/dL (33.0-37.0); Mean Corpuscular Hgb 31.2 pg (27.0-31.0); Nucleated Red Blood Cells % 0 %; Platelet Count 164 10^3/uL (130-400); Red Blood Cell Count 3.49 10^6/uL (4.20-5.40); Red Cell Dist. Width 14.9 % (11.5-14.5); White Blood Cell Count 8.9 10^3/uL (4.8-10.8)
[2024-02-12 05:30] LABS: Blood Urea Nitrogen 8 mg/dl (7-17); Calcium 8.3 mg/dl (8.4-10.2); Carbon Dioxide 24 mmol/L (22-30); Chloride 110 mmol/L (98-107); Estimated Creatinine Clearance 60 ml/min; Glucose 141 mg/dl (70-99); Potassium 4.2 mmol/L (3.5-5.1); Sodium 140 mmol/L (135-145); eGFR > 60.00
[2024-02-12] MEDS: NSS (PRESERVATIVE FREE) 8 ML IV ×2 (08:10→20:19)
[2024-02-12] MEDS: PEPCID 20 MG IV ×2 (08:10→20:18)
[2024-02-12] MEDS: ANCEF 10 IV (08:10)
[2024-02-12] MEDS: HEPARIN 5000 UNITS SC ×2 (08:10→20:18)
--- NOTE | 2024-02-12 08:35 | W.PN.GENERIC ---
Assessment / Plan
-
S/p RP liposarcoma resection POD #1
Remains hemodynamically stable. No fevers. Abdominal examination stable
No evidenced of active bleeding. No evidence of bowel perf
Will increase her diet to clears
OOB to chair. Encourage pulmonary toilet
Continue to follow VS and exam.
Physician Progress Note
Subjective
Uneventful night. No N/V. Still with incisional pain. No flatus
Objective
Vital Signs
Temp Pulse Resp BP Pulse Ox
98.3 F 58 11 139/75 96
02/12/24 04:00 02/12/24 06:00 02/12/24 06:00 02/12/24 06:00 02/12/24 06:00
Lab Results
02/12/24 04:51
02/12/24 04:51
Abdomen - soft, NT, Dsg - intact. Still crepitus on the RLQ abdominal wall, but remains stable.
[2024-02-12] MEDS: ATIVAN 0.5 MG PO ×2 (10:27→15:22)
--- NOTE | 2024-02-12 11:02 | W.PN.SURGUPD ---
Surgical Update
Surgical Update
Wagner draining minimall bloody urine
No left CVAT
BMP reveals normal renal function
Patient continues to c/o significant incisional pain
Left abdominal crepitus w/o erythema persists
--- NOTE | 2024-02-12 11:40 | CM ---
Reviewed chart, met with patient to obtain information for assessment. Patient was tearful. Emotional support provided. Patient stated that she lives with her son in a 4 story townhouse with 3 steps to enter. She was independent prior to her dx and
surgery. She was a cyclist and did yoga. 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
Patient was independent with her ADLs, personal care, dressing and bathing. She was able to do carder blankets, cook, clean and do laundry. She was driving and was getting herself to work. She stated that her son is an OT and he just got a new job
but he is supportive.
Patient denied any DME.
She has a prescription plan and uses, [facility] in [place] for all of her medication.
Her provider is, Tian Magana.
Patient stated that her spouse will be with her post op for a week or so to assist her with all of her needs. She will be receptive to VN if indicated. She would rather not have to go to a SNF but understands that if she does not progress
functionally prior to discharge, she may have to look at an alternate setting prior to going home. She relayed that she was informed of this by medical staff.
Plan: Case management will continue to follow and assist with discharge planning. [facility] Home when stable with VN.
--- NOTE | 2024-02-12 12:22 | PTCARENOTE ---
Pt received in bed @ 0700. AAOx3. Drowsy. Stating her abdominal pain is 5/10. PRN Dilaudid 0.5mg Q4H IV given as able. Anxious and tearful. Refusing repositioning due to fear of pain. Pt boosted in bed and head of bed raised in order to eat clear
liquid breakfast. Pt screamed, lifted hips off of bed and refused to return to resting position out of fear of pain. Pillows placed for a comfortable landing. Pt stated that she felt better in seated position. PRN Ativan 0.5mg PO provided for
anxiety. SaO2 95% on room air. Lungs clear. Sinus rhythm on court recording monitor. Tolerating clear liquid diet. D5 NSS reduced to 75ml/hr per order.
--- NOTE | 2024-02-12 14:36 | PTCARENOTE ---
Addendum entered by Rick Landon RN 02/12/24 18:00:
Pt assisted OOB to chair. Minimal assistance while on feet. PRN Dilaudid provided for 5/10 pain after transfer.
Addendum entered by Rick Landon RN 02/12/24 16:42:
Pt stating she is not willing to get out of bed. Admits pain is improving. Stating 4/10 abdominal pain. Tearful about potentially for increased pain if she were to move. PRN Ativan 0.5mg PO administered and emotional support and encouragement
provided. Pt asked that I check back when dinner arrives to see if she will be willing to move at that time.
Original Note:
Pt refusing turns. Anxious about the potential pain; sleeping intermittently. Pt stating she is willing to attempt to get out of bed for dinner when next dose of PRN Dilaudid is able to be administered.
[2024-02-12] MEDS: NEURONTIN 200 MG PO (15:22)
--- NOTE | 2024-02-12 18:52 | OR.RPT ---
Operative Report
Operative Report
Date of Operation: February 10, 2024
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
Postoperative Diagnosis: Same
Surgeon: Israel Fuller M.D.
Operation: Exploratory laparotomy & Retroperitoneal Sarcoma Resection � [id number]
������������������Oophorectomy (Mary Grace Mejia DO)
������������������Left ureteral stent placement (Tian Magana M.D.)
Anesthesia: General Anesthesia
Estimated Blood Loss: 100 cc
Drains: none
Specimen: Retroperitoneal sarcoma with the left ovary
Findings: A massive retroperitoneal sarcoma measuring about 35 x 30 x 20 cm involving the left ovary, left ureter, and left iliac artery
Complications: None
Procedure:
The patient was taken to the operating room and placed in the usual supine position. After adequate general endotracheal anesthesia was established, Dr. Tian Diaz from the urology service placed a left ureteral stent. The patient's abdomen was
prepped and draped in the usual sterile fashion. A midline incision was made from the xiphoid process to the suprapubic area with a #10 blade, taken through the skin into the subcutaneous tissue. The fascia was divided, and the abdomen was entered.
At this time, the abdominal cavity was explored. A large left retroperitoneal tumor extending from the left upper quadrant just below the diaphragm into the pelvis was noted. There was no evidence of other intraperitoneal diseases or liver lesions.
The left colon was stuck to the tumor, which was pushed past the midline into the right side of the abdomen by the tumor. The left colon was carefully resected off the tumor using the Voyant energy device. The tumor was carefully reflected medially,
laterally, superiorly, and inferiorly by getting into the retroperitoneal space. During this process, the left ureteral stent was identified in the pelvis,�coursing through the tumor. Interestingly, there appeared to be a separation of the tumor,
where the left ureter was coursing through. The left ureteral was dissected by the tumor anteriorly, completely mobilizing it away from the tumor.
The left ovary was adhered to the tumor inferiorly, and the ovarian artery and vein were coursing through the tumor. Therefore, a decision was made to resect the left ovary en bloc with the retroperitoneal tumor. At this time, Dr. Mary Grace Mejia,
from the gynecology service, performed a left oophorectomy.
Attention was turned to the superior aspect of the tumor, which was adherent to the kidney. The left kidney was carefully resected off the tumor using a Voyant energy device.
We continued to mobilize the tumor in various directions to the underlying left iliac vessels, quadratus lumborum, and psoas major muscles. The tumor was stuck to the left iliac artery, which had to be peeled off cautiously. We finally removed the
tumor by resecting it from the underlying muscles and sent it�to the pathology department. Adequate hemostasis was�obtained. There was no evidence of injury to the bowel, left ureter, left kidney, or iliac vessels.
The anterior fascia was approximated with #1 Vicryl in a running fashion. The subcutaneous tissue was re-approximated with #3-0 Vicryl in a running fashion. The skin was re-approximated with #4-0 Monocryl in a running subcuticular fashion.
Steri-strips and several dressings were applied. The patient was extubated without any problems. The final needle, sponge, and instrument counts were correct. She was transferred to the PACU.
[2024-02-12] MEDS: COLACE 100 MG PO (20:18)
[2024-02-12] MEDS: NEURONTIN PO (23:37)
[2024-02-13] VITALS (14 sets, daily range): BP systolic 116–156; BP diastolic 73–96
--- NOTE | 2024-02-13 00:44 | PTCARENOTE ---
Pt. been resting in bed without complaint. Ox3, DAVID but slow to move 2/2 fear of pain. Pain well controlled and anxiety improved per pt. SR on tele, HR 80s. BP 140s/70s. Afebrile. + pulses. TEDs and SCDs maintained. On RA, Lungs CTA. Hypoactive
bowel sounds throughout. Midline abdominal incision with aquacell dsg intact. Wagner draining pink colored urine. See I&O. IVF per JUN. Call quigley in reach
[2024-02-13] MEDS: DILAUDID 0.5 MG IV ×3 (01:29→18:03)
[2024-02-13 05:24] LABS: % Basophils 0.5 % (0-2); % Eosinophils 2.2 % (0-6); % Immature Granulocytes 0.2 % (0-0.5); % Lymphocytes 18.3 % (20.5-51.1); % Monocytes 6.6 % (1.7-9.3); % Neutrophils 72.2 % (42.2-75.2); Absolute Eosinophils 0.2 10^3/uL (0-0.7); Absolute Lymphocytes 1.5 10^3/uL (1.2-3.4); Absolute Monocytes 0.5 10^3/uL (0.1-0.6); Absolute Neutrophils 5.9 10^3/uL (1.4-6.5); Hematocrit 32.7 % (37.0-47.0); Mean Corp Hgb Conc. 33.6 g/dL (33.0-37.0); Mean Corpuscular Hgb 29.9 pg (27.0-31.0); Mean Corpuscular Volume 88.9 fL (81.0-99.0); Mean Platelet Volume 10.9 fL (7.4-10.4); Nucleated Red Blood Cells % 0 %; Platelet Count 186 10^3/uL (130-400); Red Blood Cell Count 3.68 10^6/uL (4.20-5.40); Red Cell Dist. Width 14.6 % (11.5-14.5); White Blood Cell Count 8.2 10^3/uL (4.8-10.8)
[2024-02-13] MEDS: D5/0.9% SODIUM CHLORIDE 1000 IV ×2 (05:26→18:34)
[2024-02-13 05:43] LABS: Blood Urea Nitrogen 3 mg/dl (7-17); Calcium 8.5 mg/dl (8.4-10.2); Carbon Dioxide 25 mmol/L (22-30); Chloride 107 mmol/L (98-107); Estimated Creatinine Clearance 70 ml/min; Glucose 115 mg/dl (70-99); Potassium 3.5 mmol/L (3.5-5.1); Sodium 141 mmol/L (135-145); eGFR > 60.00
--- NOTE | 2024-02-13 07:41 | W.PN.GENERIC ---
Assessment / Plan
-
S/P RP sarcoma resection POD #3
Remains stable.
LLQ SQ air persists but stable.
Tolerating clears. Will increase diet to regular
Add Toradol for better control
Needs to ambulate
Tsf pt to surgical floor
Await path
Physician Progress Note
Subjective
No complaints except for incisional pain. No N/V. Passing flatus. Tolerating clears
Objective
Vital Signs
Temp Pulse Resp BP Pulse Ox
98.5 F 64 11 156/88 96
02/13/24 04:42 02/13/24 06:00 02/13/24 06:00 02/13/24 06:00 02/13/24 06:00
Lab Results
02/13/24 04:31
02/13/24 04:31
Abdomen - soft ND. Still with LLQ abdominal wall crepitus. + BS
[2024-02-13] MEDS: ATIVAN 0.5 MG PO ×2 (08:55→18:03)
[2024-02-13] MEDS: NEURONTIN 200 MG PO ×3 (08:55→22:13)
[2024-02-13] MEDS: COLACE 100 MG PO ×2 (08:55→19:54)
[2024-02-13] MEDS: PEPCID 20 MG IV ×2 (08:55→19:56)
[2024-02-13] MEDS: NSS (PRESERVATIVE FREE) 8 ML IV ×2 (08:55→19:56)
[2024-02-13] MEDS: HEPARIN 5000 UNITS SC ×2 (08:56→19:56)
[2024-02-13] MEDS: TORADOL 15 MG IV ×4 (09:15→23:48)
--- NOTE | 2024-02-13 11:01 | PTCARENOTE ---
assessments per work list. crepitus noted along left flank. see MAR for prn administration. tolerating oral intake without issues. Wagner draining pink yellow urine, assisted out of bed to chair, tolerated. call quigley in reach. updated with plan of
care. med surg level of care
--- NOTE | 2024-02-13 18:18 | PTCARENOTE ---
patient remains out of bed to chair. very upset, crying because she was coughing and in pain. increased anxiety. medicated with dilaudid and ativan per prn order. increased support given
--- NOTE | 2024-02-13 20:45 | PTCARENOTE ---
Received pt from day shift. Pt aaox3, anxious at times. Pt M/S and VSS. JUDY meds given and hygiene completed. Gave verbal report to ROSEMARIE Quevedo. Pt transferred via wheelchair to . All belongings with patient.
--- NOTE | 2024-02-13 21:48 | PTCARENOTE ---
Pt arrived AT 2130 via wheelchair from IMU. VSS. oriented to room and call quigley. bed in lowest position and locked.
[2024-02-14 01:51] VITALS: BMI 20.4
[2024-02-14] MEDS: TORADOL 15 MG IV ×4 (05:14→23:18)
--- NOTE | 2024-02-14 07:52 | W.PN.UPDATE ---
Update Note
Progress Note Update
pt stable urologically
cr normal
urine clear
ct shows stent prox coil in prox ureter-but no hydro and no flank pain
reviewed plan with pt
if stable- plan corral removal tomorrow- then outpt stent removal in 2 weeks
will follow
[2024-02-14] MEDS: PEPCID 20 MG IV ×2 (07:59→20:05)
[2024-02-14] MEDS: NSS (PRESERVATIVE FREE) 8 ML IV ×2 (07:59→20:05)
[2024-02-14] MEDS: NEURONTIN 200 MG PO ×3 (08:01→21:31)
[2024-02-14] MEDS: HEPARIN 5000 UNITS SC ×2 (08:01→20:05)
[2024-02-14] MEDS: COLACE 100 MG PO ×2 (08:01→20:04)
[2024-02-14 08:05] LABS: % Basophils 0.7 % (0-2); % Eosinophils 4.6 % (0-6); % Immature Granulocytes 0.2 % (0-0.5); % Monocytes 7.7 % (1.7-9.3); % Neutrophils 62.8 % (42.2-75.2); Absolute Eosinophils 0.3 10^3/uL (0-0.7); Absolute Lymphocytes 1.4 10^3/uL (1.2-3.4); Absolute Monocytes 0.5 10^3/uL (0.1-0.6); Absolute Neutrophils 3.7 10^3/uL (1.4-6.5); Hematocrit 31.1 % (37.0-47.0); Hemoglobin 10.7 g/dL (12.0-16.0); Mean Corp Hgb Conc. 34.4 g/dL (33.0-37.0); Mean Corpuscular Hgb 31.7 pg (27.0-31.0); Nucleated Red Blood Cells % 0 %; Platelet Count 186 10^3/uL (130-400); Red Blood Cell Count 3.38 10^6/uL (4.20-5.40); Red Cell Dist. Width 14.4 % (11.5-14.5); White Blood Cell Count 5.8 10^3/uL (4.8-10.8)
[2024-02-14] MEDS: D5/0.9% SODIUM CHLORIDE 1000 IV (08:15)
[2024-02-14 08:30] VITALS: BP 128/77
[2024-02-14 08:30] LABS: Blood Urea Nitrogen 7 mg/dl (7-17); Calcium 8.4 mg/dl (8.4-10.2); Carbon Dioxide 24 mmol/L (22-30); Chloride 106 mmol/L (98-107); Estimated Creatinine Clearance 70 ml/min; Glucose 102 mg/dl (70-99); Potassium 3.5 mmol/L (3.5-5.1); Sodium 140 mmol/L (135-145); eGFR > 60.00
--- NOTE | 2024-02-14 09:16 | W.PN.GENERIC ---
Assessment / Plan
-
S/p Resection of the left RP sarcoma POD #4
Continues to do well. Tolerating regular diet with bowel function. No fevers with stable VSS
Will ask case management to see patient re: DC options - home PT/OT vs SNIF
OOB and amulate
Continue corral
Await path
Physician Progress Note
Subjective
Feeling well. Had a BM. Better pain control
Objective
Vital Signs
Temp Pulse Resp BP Pulse Ox
98.9 F 93 18 128/77 96
02/14/24 08:30 02/14/24 08:30 02/14/24 08:30 02/14/24 08:30 02/14/24 08:30
Lab Results
02/14/24 05:21
02/14/24 05:21
Abdomen - soft, ND. Incision - CDI
--- NOTE | 2024-02-14 10:38 | OID.PS.NOTER ---
OID Social Work Note
- -
Visited with patient to offer emotional support and education. Provided active and reflective listening, emotional validation, and responded to patient's feelings with empathy and care. Discussed options for chair yoga and potentially other
complimentary services once recovered from surgery and treatment plan is known.
[2024-02-14 15:00] VITALS: BP 152/92
--- NOTE | 2024-02-14 15:23 | PN.CDI ---
CDI
- -
CDI:
Physician Documentation Request
Admit Date: 02/10/24 08:28
Dear Doctor Jonny,
Clinical Indicators:
The diagnosis of atelectasis was included in the signed CT report.
02/10 CT Abd/Pelvis Report, 'Lung bases: Small bilateral pleural effusions and adjacent compressive atelectasis.'
02/11- 02/13 Nursing Assessments: Breath sounds diminished in bilateral bases
Incentive Spirometry ordered.
Please indicate in your progress notes if you are in agreement that the above diagnosis is valid for this patient:
Atelectasis is a valid diagnosis (Please include it in your progress notes)
Atelectasis is not a valid diagnosis for this patient
Atelectasis is not yet confirmed but remains a suspected condition
Other, please specify
Use of terms such as suspected, likely, concern for, or probable are acceptable for a diagnosis that is being evaluated, monitored or treated as if it exists and can be coded in the inpatient setting, when documented at the time of discharge.
Thank you,
Samantha Allred RN BSN
CDI Specialist
available via tiger text
Please use your independent medical judgment in providing your response.
--- NOTE | 2024-02-14 15:57 | CM ---
Reviewed the chart notes and spoke with the patient at the bedside. CM consult received for possible SNF/rehab. OT evaluation recommending home health. PT evaluation pending. Discussed with the patient difference in home with VN services vs
SNF/rehab. Will follow patient to see progress in next couple of days. Per patient, her ex-spouse will be able to stay with her for one week post discharge. Patient's son is an OT, but he does work time study clerk. CM continues to be available to
patient/family and is monitoring medical plan for needs at discharge.
Plan: Discharge plans will depend on the patient's progress.
[2024-02-14 23:13] VITALS: BP 146/84
[2024-02-15] MEDS: TORADOL 15 MG IV ×4 (05:03→23:37)
[2024-02-15 07:40] VITALS: BP 145/87
[2024-02-15] MEDS: PEPCID IV ×3 (08:08→21:05)
[2024-02-15] MEDS: NSS (PRESERVATIVE FREE) IV (08:08)
[2024-02-15] MEDS: COLACE 100 MG PO ×2 (08:09→21:04)
[2024-02-15] MEDS: NEURONTIN 200 MG PO ×3 (08:09→21:04)
[2024-02-15] MEDS: HEPARIN 5000 UNITS SC ×2 (08:09→21:04)
[2024-02-15 15:10] VITALS: BP 139/63
--- NOTE | 2024-02-15 15:30 | PTCARENOTE ---
Patient concerned regarding left thigh appearance, patient states left thigh appears swollen; Left thigh with trace edema when compared to right; No ecchymosis noted to left thigh, area of concern soft to palpation, patient states mid to upper thigh
is tender to touch, area warm, pedal pulse palpable, patient reports decreased sensation; Dr. Fuller made aware; Ultrasound ordered
--- NOTE | 2024-02-15 15:38 | CM ---
Reviewed the chart notes and spoke with the patient at the bedside. PT recommending home with VN services. Discussed area VN agencies with the patient. The patient selected VN. Referral sent in Care Port. CM continues to be available to
patient/family and is monitoring medical plan for needs at discharge.
Plan: Discharge to home when medically stable with VN services. Patient's ex-spouse will stay with the patient for the first week.
--- NOTE | 2024-02-15 15:48 | VNURNOTE ---
Home Health Liaison spoke with patient to discuss [facility] nurse/therapy, visits, schedule and homebound status. Patient is agreeable and understands that visits at home will be 2-3 x per week to assess and teach medical management. Patient is aware
that [facility] will contact them for start of care in 1-2 days after discharge from . [facility] referral completed in Care Port.
[2024-02-15] MEDS: NSS (PRESERVATIVE FREE) 8 ML IV (21:04)
[2024-02-15] MEDS: PEPCID 20 MG PO (23:02)
[2024-02-15 23:30] VITALS: BP 141/86
[2024-02-15] MEDS: FLEXERIL 5 MG PO (23:37)
--- NOTE | 2024-02-16 | PTCARENOTE ---
During assessment, pt. anxious about L thigh pain stating the pain was getting worse than when it first started this AM. Trace swelling to L thigh, soft tissue but tender to palpation, fair ROM - limited by pain, good sensation throughout leg, leg
warm, pedal pulses strong B/L. House [employer] SEC[employer]CH[employer] contacted and up to see pt. Stat Flexeril given. Pt. sleeping comfortably when observed during next hourly round.
[2024-02-16 00:01] VITALS: BP 141/86
--- NOTE | 2024-02-16 02:03 | W.PN.UPDATE ---
Update Note
Progress Note Update
Patient reports of right thigh pain since earlier today. Neg for DVT. Upon assessment, no visible injury or trauma noted. Patient reports pain being dull like muscle pain. Ice and heat recommended. Rx Flexeril 5mg.
[2024-02-16] MEDS: TORADOL 15 MG IV ×4 (06:02→23:21)
--- NOTE | 2024-02-16 07:56 | W.PN.UPDATE ---
Update Note
Progress Note Update
pt's corral removed yesterday
no trouble urinating
at time of discharge should call dr christianson's office to arrange outpt f/u for stent removal
call with any further questions
[2024-02-16 08:08] VITALS: BP 129/90
[2024-02-16] MEDS: COLACE 100 MG PO ×2 (08:17→21:19)
[2024-02-16] MEDS: HEPARIN 5000 UNITS SC ×2 (08:17→21:19)
[2024-02-16] MEDS: NEURONTIN 200 MG PO ×3 (08:17→21:20)
[2024-02-16] MEDS: PEPCID IV ×2 (08:20→21:20)
[2024-02-16] MEDS: NSS (PRESERVATIVE FREE) IV ×2 (08:20→21:20)
[2024-02-16] MEDS: ATIVAN 0.5 MG PO (08:27)
--- NOTE | 2024-02-16 11:36 | W.PN.GENERIC ---
Assessment / Plan
-
S/P retropertoneal sarcoma resection POD #6
Overall stable. Her VSS and temp WNL
Atelectasis visualized on the CT scan done on POD#1 is an expected findings.
Left thigh pain - I am uncertain the etiology of this. ? Muscle spasm.
Will watch. If worsens, we will do futher workup
OOB and ambulate
Physician Progress Note
Subjective
C/o left thigh pain which started yesterday AM, which has slowly worsened. US of left thigh was negative for DVT
Objective
Vital Signs
Temp Pulse Resp BP Pulse Ox
97.9 F 84 18 129/90 96
02/16/24 08:08 02/16/24 08:08 02/16/24 08:08 02/16/24 08:08 02/16/24 08:08
Lab Results
02/14/24 05:21
02/14/24 05:21
Abdomen - soft, NT. Incision - CDI. Still with the RLQ abdominal wall SQ air
Her left leg with good palp distal pulses. Moving without any problems
[2024-02-16 13:14] VITALS: BP 154/101; PULSE 91
[2024-02-16 15:44] VITALS: BP 147/91
--- NOTE | 2024-02-16 16:17 | CM ---
Reviewed the chart notes. CM continues to be available to patient/family and is monitoring medical plan for needs at discharge.
Plan: Discharge to home when medically stable with VN services. Patient's ex-spouse will stay with the patient for the first week.
--- NOTE | 2024-02-16 21:09 | W.PN.UPDATE ---
Update Note
Progress Note Update
Patient again c/o L thigh pain she describes as a 'stabbing pain' . Will try Flexeril again tonight since it worked well last night for same complaint.
[2024-02-16] MEDS: FLEXERIL 5 MG PO (21:20)
[2024-02-16] MEDS: PEPCID 20 MG PO (21:21)
[2024-02-16] MEDS: FLUSH (NSS) 2 FLUSH IV (23:22)
[2024-02-16 23:38] VITALS: BP 124/81
[2024-02-17] MEDS: TORADOL 15 MG IV ×3 (06:34→17:52)
[2024-02-17] MEDS: FLUSH (NSS) 2 FLUSH IV (06:36)
[2024-02-17] MEDS: OMNIPAQUE 50 ML PO (08:30)
[2024-02-17] MEDS: HEPARIN 5000 UNITS SC ×2 (08:42→19:53)
[2024-02-17] MEDS: NEURONTIN 200 MG PO ×3 (08:43→21:31)
[2024-02-17] MEDS: COLACE 100 MG PO ×2 (08:44→19:53)
[2024-02-17] MEDS: NSS (PRESERVATIVE FREE) IV ×2 (08:45→21:02)
[2024-02-17] MEDS: PEPCID IV (08:46)
[2024-02-17 08:54] VITALS: BP 132/89
--- NOTE | 2024-02-17 10:49 | CM ---
Reviewed the chart notes and spoke with the patient at the bedside. The patient is scheduled for a CT of her left leg due to pain. CM continues to be available to patient/family and is monitoring medical plan for needs at discharge.
Plan: Discharge plans are hopefully home with [facility] services and her ex-spouse will be staying with her 01/11 for the first week home.
--- NOTE | 2024-02-17 14:02 | W.PN.GENERIC ---
Addendum entered and electronically signed by Israel Fuller MD 02/24/24 13:31:
Her Hg went from 13 preoperatively 11.4 on the day of her d/c. This is consistent with anemia, due to acute blood loss and hemodilution, which is expected.
Original Note:
Assessment / Plan
-
S/P resection of the left RP sarcoma POD #7
Stable. Eating with good bowel function with minimal incisional pain.
CT of the abd/pelvis showed findings consistent with postoperative changes with a collection in the pelvis, which may be causing pressure in her pelvic structures. Nothing obvious to explain her left thigh pain.
Some of her symptoms may be due to her anxiety of going home. (Some staffs have witness her moving without any problems)
We will continue to observe her over the weekend.
She needs PT/OT.
We may have to look into sending her home to [facility]
Physician Progress Note
Subjective
She is tolerating diet and moving bowels without any problems. Her left thigh pain is better. She is moving without any problems (observed by RNs) but she is concerned about her left thigh pain and nervous about going home.
Objective
Vital Signs
Temp Pulse Resp BP Pulse Ox
98.2 F 83 16 132/89 97
02/17/24 08:54 02/17/24 08:54 02/17/24 08:54 02/17/24 08:54 02/17/24 08:54
Lab Results
02/14/24 05:21
02/14/24 05:21
Abdomen - soft NT. Incision - CDI
[2024-02-17 14:58] VITALS: BP 127/89; PULSE 99; O2SAT 98
[2024-02-17 16:17] VITALS: BP 125/95
[2024-02-17 17:42] LABS: Hematocrit 33.5 % (37.0-47.0); Hemoglobin 11.4 g/dL (12.0-16.0); Mean Corpuscular Hgb 31.4 pg (27.0-31.0); Mean Corpuscular Volume 92.3 fL (81.0-99.0); Mean Platelet Volume 9.7 fL (7.4-10.4); Platelet Count 273 10^3/uL (130-400); Red Blood Cell Count 3.63 10^6/uL (4.20-5.40); Red Cell Dist. Width 14.6 % (11.5-14.5); White Blood Cell Count 8.2 10^3/uL (4.8-10.8)
[2024-02-17 18:10] LABS: Blood Urea Nitrogen 9 mg/dl (7-17); Calcium 9.2 mg/dl (8.4-10.2); Carbon Dioxide 29 mmol/L (22-30); Chloride 101 mmol/L (98-107); Estimated Creatinine Clearance 70 ml/min; Glucose 99 mg/dl (70-99); Potassium 4.6 mmol/L (3.5-5.1); Sodium 139 mmol/L (135-145); eGFR > 60.00
[2024-02-17] MEDS: SENNA SYRUP 8.8 MG PO (19:53)
[2024-02-17 23:31] VITALS: BP 135/80
[2024-02-18] MEDS: TORADOL 15 MG IV ×2 (00:04→06:04)
[2024-02-18 07:20] VITALS: BP 125/87
--- NOTE | 2024-02-18 10:09 | W.DS.TRANS ---
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
-
Discharge Instructions:
Sleep Apnea Risk Low
Discharge Diagnosis/Procedures Retroperitoneal sarcoma
Diet Regular
Activity As tolerated,No strenuous activity
Additional Activity no lifting
Driving Restrictions Not until seen by your Dr
Bathing Restrictions OK to Shower
Instructions:
Stand-Alone Forms:
Changes to Home Medications: Yes
Discharge Medications:
DC Medications w/original date entered in [employer]
acetaminophen 500 mg tablet (Tylenol Extra Strength) 1,000 mg PO Q6HPRN PRN mild pain 01/07/24
clindamycin phosphate 1 % topical gel 1 applic topical BIDPRN PRN skin issues 01/07/24
naproxen sodium 220 mg tablet (Aleve) 220 mg PO BIDPRN PRN pain 01/07/24
neomycin 500 mg tablet 1,000 mg PO DIRECTED Infection 02/09/24
polyethylene glycol 3350 17 gram oral powder packet (Miralax) 17 g PO DIRECTED Constipation 02/09/24
biotin 10,000 mcg chewable tablet (Hair, Skin and Nails (biotin)) 1 mcg PO 4-8XD Supplement 02/10/24
pyridoxine (vitamin B6) 100 mg tablet (Vitamin B-6) 100 mg PO DAILY Supplement 02/10/24
gabapentin 100 mg capsule 200 mg (2 x 100 mg) PO TID pain #90 caps 02/18/24
Home Medication Changes
Pending Results: No
[2024-02-18] MEDS: NEURONTIN 200 MG PO (10:10)
[2024-02-18] MEDS: HEPARIN SC (10:10)
[2024-02-18] MEDS: COLACE 100 MG PO (10:10)
[2024-02-18] MEDS: SENNA SYRUP PO (10:11)
[2024-02-18] MEDS: NSS (PRESERVATIVE FREE) IV (10:11)
--- NOTE | 2024-02-18 10:50 | CM ---
Pt for discharge today
Has ride home
[facility] to follow at discharge
Plan - home with [facility]
--- NOTE | 2024-02-20 15:42 | PN.CDI ---
CDI
- -
CDI:
Physician Documentation Request
Admit Date: 02/10/24 08:28
Dear Doctor Jonny,
Clinical Indicators:
Patient admitted with retroperitoneal sarcoma; s/p Exploratory laparotomy & Retroperitoneal Sarcoma Resection 02/11.
Operative Report: EBL 100 cc
02/10 update note, 'patient is hypotensive with bp 86/53....Hgb level is 9.2 last hgb recorded in the chart is 13. With the current status of hypotension and the drop in the hgb level will give one unit of blood.'
02/11 PN, 'Her decreased Hg represents intraoperative and some postoperative blood loss, and hemodilution'
PRBCs 1 unit transfused.
Based on the above, could you clarify in the progress notes, the appropriate diagnosis, if significant, that supports the above abnormalities and additional evaluation, monitoring and/or treatment rendered:
Anemia, due to acute blood loss and hemodilution
Drop in hemoglobin only
Other, please specify
Use of terms such as suspected, likely, concern for, or probable (associated with a specific diagnosis that is being evaluated, monitored, or treated as if it exists) are acceptable and can be coded in the inpatient setting, when documented at the
time of discharge.
Thank you,
Samantha Allred RN BSN
CDI Specialist
available via tiger text
Please use your independent medical judgment in providing your response.
== END 2024-02-18 13:25 | disposition home health service (06) | DRG 827 ==
LOC: 2 SOUTH 08:28
PROVIDERS: Nurse Practitioner Family; Student in an Organized Health Care Education/Training Program; ADMITTING PHYSICIAN Surgery; CONSULT PHYSICIAN Specialist; REFERRING PHYSICIAN Specialist
PROC: 0WBH0ZZ Excision of Retroperitoneum, Open Approach (ICD-10-PCS; 2024-02-10)
PROC: 0UB60ZZ Excision of Left Fallopian Tube, Open Approach (ICD-10-PCS; 2024-02-10)
PROC: 0UT10ZZ Resection of Left Ovary, Open Approach (ICD-10-PCS; 2024-02-10)
PROC: 30233N1 Transfusion of Nonautologous Red Blood Cells into Peripheral Vein, Percutaneous Approach (ICD-10-PCS; 2024-02-11)
DX: C48.0 Malignant neoplasm of retroperitoneum (principal); D62 Acute posthemorrhagic anemia; I45.81 Long QT syndrome; Z88.2 Allergy status to sulfonamides; Z87.891 Personal history of nicotine dependence
CPT/HCPCS: 88305; 88309; 36415; 74176; 74177; 74420; 76000; 80048; 80053; 85025; 85027; 85610; 86850; 86900; 86901; 86920; 87070; 93005; 93971; 97110; 97116; 97163; 97167; 97530; 97535; C1758; C1776; C9250; P9016; P9045; Q9967

== ENCOUNTER → 2024-03-15 14:25 | Outpatient (REF) | payer BC, SELFPAY | LOC: HWRAD 14:25 | PROVIDERS: ATTENDING PHYSICIAN Specialist; FAMILY PHYSICIAN Student in an Organized Health Care Education/Training Program | DX: N13.30 Unspecified hydronephrosis (principal) | CPT/HCPCS: 76775 ==

== ENCOUNTER → 2024-06-23 08:13 | Outpatient (REF) | payer BC, MEDICARE, SELFPAY ==
[2024-06-23 09:31] LABS: Blood Urea Nitrogen 24 mg/dl (7-17)
== END ==
LOC: REG 08:13
PROVIDERS: ATTENDING PHYSICIAN Surgery; FAMILY PHYSICIAN Student in an Organized Health Care Education/Training Program
DX: C48.0 Malignant neoplasm of retroperitoneum (principal)
CPT/HCPCS: 36415; 82565; 84520

== ENCOUNTER → 2024-07-02 16:26 | Outpatient (REF) | payer BC, MEDICARE, SELFPAY | LOC: RAD 16:26 | PROVIDERS: ATTENDING PHYSICIAN Surgery; FAMILY PHYSICIAN Student in an Organized Health Care Education/Training Program | DX: C48.0 Malignant neoplasm of retroperitoneum (principal) | CPT/HCPCS: 74177; Q9967 ==

== ENCOUNTER → 2024-12-03 07:40 | Outpatient (REF) | payer BC, SELFPAY ==
[2024-12-03 09:41] LABS: Hematocrit 35.8 % (37.0-47.0); Hemoglobin 11.8 g/dL (12.0-16.0); Mean Corp Hgb Conc. 33.0 g/dL (33.0-37.0); Mean Corpuscular Volume 92.7 fL (81.0-99.0); Platelet Count 200 10^3/uL (130-400); Red Cell Dist. Width 13.9 % (11.5-14.5)
[2024-12-03 09:58] LABS: ALT (SGPT) 30 U/L (0-35); AST (SGOT) 32 U/L (14-36); Albumin 4.5 g/dl (3.5-5.0); Alkaline Phosphatase 52 U/L (38-126); Blood Urea Nitrogen 24 mg/dl (7-17); Calcium 9.5 mg/dl (8.4-10.2); Carbon Dioxide 26 mmol/L (22-30); Chloride 108 mmol/L (98-107); Glucose 114 mg/dl (70-99); HDL Cholesterol 58 mg/dl; LDL Cholesterol, Calculated 127 mg/dl; Potassium 4.1 mmol/L (3.5-5.1); Sodium 141 mmol/L (135-145); Total Protein 7.0 g/dl (6.3-8.2); Very Low Density Lipoprotein 17 mg/dl (0-30); eGFR > 60.00
[2024-12-03 10:08] LABS: Nucleated Red Blood Cells % 0 %
[2024-12-03 11:56] LABS: Glycohemoglobin (HgbA1c) 5.8 % (4.0-5.6)
== END ==
LOC: HWLAB 07:40
PROVIDERS: ATTENDING PHYSICIAN Student in an Organized Health Care Education/Training Program
DX: Z00.00 Encounter for general adult medical examination without abnormal findings (principal); Z86.2 Personal history of diseases of the blood and blood-forming organs and certain disorders involving the immune mechanism; C48.0 Malignant neoplasm of retroperitoneum; K64.4 Residual hemorrhoidal skin tags; F51.04 Psychophysiologic insomnia
CPT/HCPCS: 36415; 80053; 80061; 83036; 85025

== ENCOUNTER → 2024-12-17 17:07 | Outpatient (REF) | payer BC, SELFPAY | LOC: RAD 17:07 | PROVIDERS: ATTENDING PHYSICIAN Surgery; FAMILY PHYSICIAN Student in an Organized Health Care Education/Training Program | DX: C48.0 Malignant neoplasm of retroperitoneum (principal) | CPT/HCPCS: 71260; 74177; Q9967 ==